=== PATIENT | male | born 1970 | race Caucasian/White ===

== ENCOUNTER 2017-05-22 11:49 | Inpatient (IN) ==
[2017-05-22] MEDS ORDERED: *HR* Metoprolol 5 MG/5 ML VIAL IVP PRN (13:34)
[2017-05-22] MEDS ORDERED: Ondansetron 4 MG/2 ML VIAL IVP PRN (13:34)
[2017-05-22] MEDS ORDERED: Naloxone 0.4 MG/ML INJ IVP PRN (13:34)
--- NOTE | 2017-05-22 14:39 | Event Note ---
Date of Encounter: 05/22/17 Time of Encounter: 14:38 Please see wound care note from 05/22/17 for complete H&P. Completed per Dr. De La Fuente.
[2017-05-22 14:47] LABS: Basophils # 0.1 K/mcL (0.0-0.2); Basophils % 0.6 %; Eosinophils # 0.3 K/mcL (0.0-0.6); Eosinophils % 1.7 %; Hematocrit 28.7 % (37.5-50.1); Hemoglobin 8.4 g/dL (12.9-16.9); Immature Granulocytes % 2.1 % (0-4); Lymphocytes # 2.1 K/mcL (0.6-4.6); Lymphocytes % 13.9 %; Mean Corpuscular HGB Conc 29.3 g/dL (31.6-35.5); Mean Corpuscular Hemoglobin 24.3 pg (28.0-33.3); Mean Corpuscular Volume 82.9 fL (83.0-100.0); Mean Platelet Volume 10.1 fL (9.4-12.4); Monocytes % 6.7 %; Neutrophils # 11.6 K/mcL (1.6-8.9); Platelet Count 407 K/mcL (140-400); Red Blood Count 3.46 M/mcL (4.19-5.50); Red Cell Distribution Width 19.1 % (11.5-14.5)
[2017-05-22] MEDS: 0.9 % Sodium Chloride 1,000 ML IVC SCH (14:48)
[2017-05-22 14:58] LABS: BUN/Creatinine Ratio 18 (6-26); Blood Urea Nitrogen 15 mg/dL (8-26); Calcium 8.5 mg/dL (8.6-10.8); Carbon Dioxide 27 mEq/L (19-29); Chloride 96 mEq/L (98-109); Glucose 97 mg/dL (70-99); Osmolality,Calculated 279 (280-300); Potassium 3.4 mEq/L (3.5-4.5); Sodium 134 mEq/L (136-145); eGFR For African Americans > 60 (> 60); eGFR For Non-African Americans > 60 (> 60)
[2017-05-22 14:59] LABS: INR 1.1; Prothrombin Time 12.2 Seconds (9.4-12.1)
[2017-05-22] MEDS ORDERED: tiZANidine 4 MG TABLET PO SCH (15:00)
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
[2017-05-22] MEDS ORDERED: Vancomycin 1,750 MG in D5% in Water 250 ML IVPB SCH ×2 (16:00→19:00)
[2017-05-22] MEDS ORDERED: Piperacillin/Tazobactam 3.375 GM in D5% in Water (Mini-Bag+) 100 ML IVPB SCH (16:00)
[2017-05-22] MEDS: tiZANidine 4 MG TABLET PO SCH ×2 (18:30→22:09)
[2017-05-22] MEDS: Baclofen 10 MG TABLET PO SCH (18:30)
[2017-05-22] MEDS: *HR* OxyCODONE/APAP 10/325 TABLET PO SCH (18:30)
[2017-05-22] MEDS ORDERED: Piperacillin/Tazobactam 3.375 GM in D5% in Water 50 ML IVPB SCH (19:00)
[2017-05-22] MEDS: Vancomycin 1,750 MG in D5% in Water 500 ML IVPB SCH (20:43)
[2017-05-22] MEDS: traMADol 50 MG TABLET PO SCH (22:09)
[2017-05-23] MEDS: Baclofen 10 MG TABLET PO SCH ×4 (00:16→17:20)
[2017-05-23] MEDS: traZODone 50 MG TABLET PO SCH (00:16)
[2017-05-23] MEDS: *HR* OxyCODONE/APAP 10/325 TABLET PO SCH ×4 (00:16→17:21)
[2017-05-23] MEDS: Piperacillin/Tazobactam 3.375 GM in D5% in Water 50 ML IVPB SCH ×3 (03:23→22:52)
[2017-05-23] MEDS: tiZANidine 4 MG TABLET PO SCH ×7 (03:23→21:29)
[2017-05-23 05:43] LABS: Basophils # 0.1 K/mcL (0.0-0.2); Eosinophils # 0.2 K/mcL (0.0-0.6); Eosinophils % 2.7 %; Hematocrit 24.8 % (37.5-50.1); Hemoglobin 7.3 g/dL (12.9-16.9); Immature Granulocytes % 1.6 % (0-4); Lymphocytes # 1.5 K/mcL (0.6-4.6); Lymphocytes % 16.6 %; Mean Corpuscular HGB Conc 29.4 g/dL (31.6-35.5); Mean Corpuscular Hemoglobin 24.6 pg (28.0-33.3); Mean Corpuscular Volume 83.5 fL (83.0-100.0); Mean Platelet Volume 8.8 fL (9.4-12.4); Monocytes # 0.7 K/mcL (0.0-1.3); Neutrophils # 6.3 K/mcL (1.6-8.9); Platelet Count 351 K/mcL (140-400); Red Blood Count 2.97 M/mcL (4.19-5.50); Red Cell Distribution Width 19.2 % (11.5-14.5); Segmented Neutrophils % 70.1 %
[2017-05-23 06:16] LABS: BUN/Creatinine Ratio 16 (6-26); Blood Urea Nitrogen 13 mg/dL (8-26); Calcium 7.8 mg/dL (8.6-10.8); Carbon Dioxide 28 mEq/L (19-29); Chloride 98 mEq/L (98-109); Glucose 106 mg/dL (70-99); Osmolality,Calculated 281 (280-300); Potassium 3.4 mEq/L (3.5-4.5); Sodium 135 mEq/L (136-145); eGFR For African Americans > 60 (> 60); eGFR For Non-African Americans > 60 (> 60)
[2017-05-23] MEDS: Levothyroxine 25 MCG TABLET PO SCH (06:46)
[2017-05-23] MEDS: Vancomycin 1,750 MG in D5% in Water 500 ML IVPB SCH ×2 (07:59→17:25)
[2017-05-23] MEDS: Nystatin SUSP 5 ML UD.LIQ PO SCH ×4 (08:01→21:29)
[2017-05-23] MEDS: traMADol 50 MG TABLET PO SCH ×3 (08:01→21:28)
[2017-05-23] MEDS ORDERED: Potassium Chloride Elixir 20 MEQ/15 ML UDC PO ONE (08:26)
--- NOTE | 2017-05-23 14:34 | General Surgery Progress Note ---
Date of Encounter: 05/24/17 Time of Encounter: 14:32 - Assessment and Plan (1) Decubitus ulcers Current Visit: Yes Status: Acute She with no multiple to keep his ulcers related to the back, buttocks, and bilateral heels as well as elbow. To be changed today and daily dressing changes have been ordered. Will evaluate wounds with daily dressing changes. At this time the patient has deferred on any type of colostomy procedure because he feels that the wounds become soiled with stool i.e. the wounds are chronic decubitus ulcers on related to presence of stool. Continue with dressing change orders at this time. Qualifiers: Pressure ulcer location: contiguous region involving back and buttock Pressure ulcer stage: stage 4 Laterality: unspecified laterality Qualified Code(s): L89.44 - Pressure ulcer of contiguous site of back, buttock and hip, stage 4 Subjective Patient reports: other (Patient known to Dr. De La Fuente's service. Seen in the Wound Care Clinic for multiple decubitis wounds.) Objective Vital Signs - Last 8 Hours Temp Pulse Resp BP Pulse Ox 05/23/17 12:30 97.3 F L 78 14 105/70 97 05/23/17 07:47 97.7 F 84 16 140/85 96 Intake and Output 05/22/17 05/23/17 05/23/17 23:59 07:59 15:59 Intake Total 620 / 620 50 / 50 Output Total 0 / 0 2300 / 2300 Balance 620 / 620 -2250 / -2250 Intake: IV Fluids 500 / 500 50 / 50 Zosyn 3.375 GM In Dextrose 5% ( 50 / 50 ADD-[place]) 50 ML @ 12.5 mls/ hr IVPB Q8H SUSANA Rx#:[id number] Vancocin 1,750 MG In Dextrose 5 500 / 500 % 500 ML @ 333.34 mls/hr IVPB Q12H SUSANA Rx#:[id number] Oral 120 / 120 0 / 0 Output: Catheter 0 / 0 2300 / 2300 Other: Meal Dinner Percent of Meal Consumed 100% Weight 109.27 kg Patient Weight 05/23/17 23:59 Weight 109.27 kg - General physical appearance well developed, well nourished - Musculoskeletal other (Dressings in place on multiple buttock, isheal, and bilateral heel wounds. ) - Labs 05/24/17 05:20 05/24/17 05:20 Diabetes panel 05/22/17 05/23/17 Range/Units 14:26 05:30 Sodium 134 L 135 L (136-145) mEq/L Potassium 3.4 L 3.4 L (3.5-4.5) mEq/L Chloride 96 L 98 (98-109) mEq/L Carbon Dioxide 27 28 (19-29) mEq/L BUN 15 13 (8-26) mg/dL Creatinine 0.85 0.81 (0.72-1.25) mg/dL Glucose 97 106 H (70-99) mg/dL Calcium 8.5 L 7.8 L (8.6-10.8) mg/dL Calcium panel 05/22/17 05/23/17 Range/Units 14:26 05:30 Calcium 8.5 L 7.8 L (8.6-10.8) mg/dL Pituitary panel 05/22/17 05/23/17 Range/Units 14:26 05:30 Sodium 134 L 135 L (136-145) mEq/L Potassium 3.4 L 3.4 L (3.5-4.5) mEq/L Chloride 96 L 98 (98-109) mEq/L Carbon Dioxide 27 28 (19-29) mEq/L BUN 15 13 (8-26) mg/dL Creatinine 0.85 0.81 (0.72-1.25) mg/dL Glucose 97 106 H (70-99) mg/dL Calcium 8.5 L 7.8 L (8.6-10.8) mg/dL Adrenal panel 05/22/17 05/23/17 Range/Units 14:26 05:30 Sodium 134 L 135 L (136-145) mEq/L Potassium 3.4 L 3.4 L (3.5-4.5) mEq/L Chloride 96 L 98 (98-109) mEq/L Carbon Dioxide 27 28 (19-29) mEq/L BUN 15 13 (8-26) mg/dL Creatinine 0.85 0.81 (0.72-1.25) mg/dL Glucose 97 106 H (70-99) mg/dL Calcium 8.5 L 7.8 L (8.6-10.8) mg/dL Consult Discharge Plan - Plan Referrals: Argenis Katz, ROX [Advanced Practice Nurse] - 06/05/17 8:40 am Keyona Joseph, TRANSITIONAL KINDERGARTEN TEACHER [Primary Care Provider] -
--- NOTE | 2017-05-23 15:24 | Internal Med Progress Note ---
Date of Encounter: 05/23/17 Time of Encounter: 09:00 - Assessment and plan (1) Osteomyelitis Current Visit: No Status: Acute Assessment and plan: MRI shows osteomyelitis. - Continue Vanco and Zosyn. - IR consult called by Dr De La Fuente, for bone biopsy. Follow up culture result. - ID consult for abx management. Patient is at high risk because he is on vancomycin, need close monitoring Qualifiers: Osteomyelitis type: subacute Osteomyelitis location: multiple sites Qualified Code(s): M86.29 - Subacute osteomyelitis, multiple sites (2) Septic arthritis Current Visit: Yes Status: Suspected Assessment and plan: Suspected right hip septic arthritis by MRI. On broad spectrum antibiotics now. - Consult orthopedic. On-call orthopedic paged, waiting for call back. - ID is also on case. Qualifiers: Septic arthritis location: hip Septic arthritis organism: due to unspecified organism Laterality: right Qualified Code(s): M00.9 - Pyogenic arthritis, unspecified (3) Pressure ulcer of coccygeal region, stage 4 Current Visit: No Status: Chronic Assessment and plan: Continue wound care. Surgical team on case for wound care. (4) Hypothyroid Current Visit: No Status: Chronic Assessment and plan: Continue home medication Qualifiers: Hypothyroidism type: acquired Qualified Code(s): E03.9 - Hypothyroidism, unspecified (5) DVT prophylaxis Current Visit: Yes Status: Acute Assessment and plan: Heparin subcutaneously (6) Anemia Current Visit: Yes Status: Acute Assessment and plan: Patient has a chronic anemia. We will check anemia workup. Qualifiers: Anemia type: unspecified type Qualified Code(s): D64.9 - Anemia, unspecified - Time Spent With Patient Greater than 35 minutes - Subjective Interval history: Patient is a 46-year-old male with quadriplegia since 1996, chronic decubitus ulcer, anemia, hypothyroidism, send to hospital by wound care Dr De La Fuente for suspected osteomyelitis. I have seen and examined the patient today. Patient denies fever. Denies nausea or vomiting. WBC get down after antibiotic treatment. MRI pelvis suggested osteomyelitis and suspected septic arthritis of b/l hips. We will continue broad spectrum antibiotic. Consult ID and orthopedics. - Constitutional Vitals: Temp Pulse Resp BP Pulse Ox 97.3 F L 68 16 125/84 95 05/23/17 14:43 05/23/17 14:43 05/23/17 14:43 05/23/17 14:43 05/23/17 14:43 General appearance: Present: A&O X 3, no acute distress, answers questions appropriately - Head Head exam: Present: atraumatic, normocephalic - Eye Eye exam: Present: PERRL, conjuntiva pink, sclera anicteric Pupils: Present: PERRL - Neck Neck exam general surgery: Present: supple, trachea midline. Absent: lymphadenopathy - Respiratory Respiratory exam: Present: CTAB. Absent: accessory muscle use, rales, rhonchi, wheezes - Cardiovascular Cardiovascular exam: Present: RRR, +S1, +S2. Absent: diastolic murmur, gallop, rubs, systolic murmur - GI/Abdominal GI/Abdominal exam: Present: normal bowel sounds, soft, no peritoneal signs. Absent: distended, tenderness - Extremities Exam Extremities exam: Present: warm, radial pulses palpable and symmetrical. Absent : calf tenderness, cyanotic, pedal edema Additional comments: Quadriplegia under C7 level - Neurological Exam Neurological exam: Present: CN II-XII intact, motor sensory deficit, oriented X3. Absent: pronater drift, facial droop, speech deficit Additional comments: Quadriplegia under C7 level - Skin Skin exam: Present: dry, intact Additional comments: Stage IV decubitus ulcer Internal Medicine: Result - Labs CBC & Chem 7: 05/23/17 05:30 05/23/17 05:30 Labs: Short CBC 05/23/17 Range/Units 05:30 WBC 9.0 (4.3-11.1) K/mcL Hgb 7.3 L (12.9-16.9) g/dL Hct 24.8 L (37.5-50.1) % Plt Count 351 (140-400) K/mcL Neutrophils # 6.3 (1.6-8.9) K/mcL BMP 05/23/17 05:30 Sodium 135 L Potassium 3.4 L Chloride 98 Carbon Dioxide 28 BUN 13 Creatinine 0.81 Glucose 106 H Calcium 7.8 L - ABG Interpretation ABG results: PT/INR, D-dimer PT 12.2 Seconds (9.4-12.1) H 05/22/17 14:26 - Impressions Impressions Pelvis MRI 05/22/17 13:37 IMPRESSION: 1. Large deep bilateral ischial decubitus ulcers contacting the posterior aspects of the bilateral acetabula. Large deep sacral decubitus ulceration contacting the inferior endplate of the S2 sacral segment. 2. Findings compatible with osteomyelitis of the right superior, anterior, and posterior acetabulum as well as the right femoral head and neck with suspected right hip septic arthritis. 3. Findings compatible with osteomyelitis of the left posterior acetabulum. Small nonspecific left hip joint effusion. If there is concern for septic arthritis please consider arthrocentesis. 4. Absence of the bilateral ischial bones. 5. Absence of the lower sacrum with mild bone marrow edema in the inferior endplate of the S2 sacral segment that may represent early osteomyelitis versus noninfectious reactive osteitis. 6. No drainable fluid collection. D/ / Gene Bustamante MD / Gene Bustamante MD Interpreting Provider: Gene Bustamante MD Consult Discharge Plan - Plan Referrals: Argenis Katz CNP [Advanced Practice Nurse] - 06/05/17 8:40 am Keyona Joseph CNP [Primary Care Provider] -
[2017-05-23] MEDS: *HR* Heparin 5,000 UNIT/ML VIAL SQ SCH (17:20)
[2017-05-24] MEDS: *HR* OxyCODONE/APAP 10/325 TABLET PO SCH ×5 (00:02→23:52)
[2017-05-24] MEDS: traZODone 50 MG TABLET PO SCH ×2 (00:02→23:52)
[2017-05-24] MEDS: Baclofen 10 MG TABLET PO SCH ×5 (00:02→23:52)
[2017-05-24] MEDS: Piperacillin/Tazobactam 3.375 GM in D5% in Water 50 ML IVPB SCH ×3 (03:30→20:54)
[2017-05-24] MEDS: tiZANidine 4 MG TABLET PO SCH ×6 (03:30→21:59)
[2017-05-24] MEDS: *HR* Heparin 5,000 UNIT/ML VIAL SQ SCH ×2 (05:15→17:37)
[2017-05-24] MEDS: Levothyroxine 25 MCG TABLET PO SCH (05:20)
[2017-05-24] MEDS: 0.9 % Sodium Chloride 1,000 ML IVC SCH ×2 (05:20→23:52)
[2017-05-24 05:37] LABS: Basophils # 0.1 K/mcL (0.0-0.2); Basophils % 1.1 %; Eosinophils # 0.4 K/mcL (0.0-0.6); Eosinophils % 3.4 %; Hematocrit 27.5 % (37.5-50.1); Immature Granulocytes % 1.1 % (0-4); Lymphocytes # 1.5 K/mcL (0.6-4.6); Lymphocytes % 13.9 %; Mean Corpuscular HGB Conc 29.1 g/dL (31.6-35.5); Mean Corpuscular Hemoglobin 24.6 pg (28.0-33.3); Mean Corpuscular Volume 84.6 fL (83.0-100.0); Mean Platelet Volume 9.5 fL (9.4-12.4); Monocytes # 0.6 K/mcL (0.0-1.3); Monocytes % 5.8 %; Neutrophils # 7.8 K/mcL (1.6-8.9); Platelet Count 405 K/mcL (140-400); Red Blood Count 3.25 M/mcL (4.19-5.50); Red Cell Distribution Width 19.3 % (11.5-14.5); Segmented Neutrophils % 74.7 %
[2017-05-24 05:49] LABS: BUN/Creatinine Ratio 13 (6-26); Blood Urea Nitrogen 12 mg/dL (8-26); Calcium 7.9 mg/dL (8.6-10.8); Carbon Dioxide 24 mEq/L (19-29); Chloride 101 mEq/L (98-109); Glucose 185 mg/dL (70-99); Osmolality,Calculated 285 (280-300); Potassium 3.6 mEq/L (3.5-4.5); Sodium 135 mEq/L (136-145); eGFR For African Americans > 60 (> 60); eGFR For Non-African Americans > 60 (> 60)
[2017-05-24 06:08] LABS: % Iron Saturation 7 % (20-55); Iron 17 mcg/dL (65-175); Transferrin 167 mg/dL (174-364)
[2017-05-24 06:11] LABS: C-Reactive Protein 199 mg/L (Less than 5)
[2017-05-24 06:22] LABS: Ferritin 90 ng/ml (22-275)
[2017-05-24 06:26] LABS: Folate 5.6 ng/mL (7.0-31.4)
--- NOTE | 2017-05-24 06:31 | Orthopedic Consult Note ---
Date of Encounter: 05/24/17 Time of Encounter: 06:29 History of Present Illness HPI: Mr. Ram is a 46 year old male seen this morning concerned for right hip cellulitis. Patient with multiple ulcers secondary to being bedbound. MRI was reviewed shows activity in both the right hip and acetabulum. Based on the extent of his involvement patient is not a good surgical candidate would require extensive bone resection involving the hip and acetabular socket. Recommend continued IV antibiotics if surgical management is required patient would need to be seen by an orthopedic oncologist for this extensive procedure. Past Med Surg Social Fam HX - Past Medical History Medical history: thyroid disease, other Psychiatric history: no psych history - Past Surgical History Surgical History: orthopedic, other - Social History Smoking Status: Never smoker Smokeless Tobacco Status: No (patient reports no longer chewing) Alcohol use: none Drug use: none - Family History Mother Living Status: Still Living Hx Family Endocrine Disorder: Yes (thyroid ) Father Living Status: Still Living Hx Family Neurologic Disorders: Yes (CVA) Medications and Allergies Baclofen [Lioresal] 20 mg PO QID 03/01/15 [History] Ibuprofen [Motrin] 400 mg PO Q6HR PRN 03/01/15 [History] Levothyroxine [Synthroid] 25 mcg PO 0630 03/01/15 [History] OxyCODONE/APAP 10/325 [Percocet 10/325] 1 each PO Q6HR 03/01/15 [History] Oxybutynin [Ditropan] 5 mg PO TID 03/01/15 [History] traMADol [Ultram] 100 mg PO TID 03/01/15 [History] Tizanidine HCl [Zanaflex] 4 mg PO TID 11/30/15 [History] Furosemide [Lasix] 40 mg PO DAILY 05/16/16 [History] Clindamycin [Cleocin] 300 mg PO TID 05/22/17 [History] Collagenase Oint [Santyl] 1 appl TP DAILY 05/22/17 [History] Nystatin [Nystatin Suspension] 100,000 units PO QID 05/22/17 [History] Oxybutynin [Ditropan] 5 mg PO TID 05/22/17 [History] Tizanidine HCl [Zanaflex] 2 mg PO TID 05/22/17 [History] Trazodone HCl 100 mg PO HS 05/22/17 [History] 3 Allergy/AdvReac Type Severity Reaction Status Date / Time lorazepam [From Ativan] Allergy Nightmare Verified 03/01/15 11:54 All Systems Reviewed: A 10-system review of systems was performed and is negative for pertinent findings except as documented above in the HPI. Physical Exam - Constitutional Vitals: Temp Pulse Resp BP Pulse Ox 97.5 F L 123 17 132/86 97 05/24/17 04:11 05/24/17 04:11 05/24/17 04:11 05/24/17 04:11 05/24/17 04:11 Results - Labs Result Diagrams: 05/24/17 05:20 05/24/17 05:20 Labs: Abnormal lab results RBC 3.25 M/mcL (4.19-5.50) L 05/24/17 05:20 Hgb 8.0 g/dL (12.9-16.9) L 05/24/17 05:20 Hct 27.5 % (37.5-50.1) L 05/24/17 05:20 MCH 24.6 pg (28.0-33.3) L 05/24/17 05:20 MCHC 29.1 g/dL (31.6-35.5) L 05/24/17 05:20 RDW 19.3 % (11.5-14.5) H 05/24/17 05:20 Plt Count 405 K/mcL (140-400) H 05/24/17 05:20 ESR >= 130 mm/hr (0-10) H 05/24/17 05:20 PT 12.2 Seconds (9.4-12.1) H 05/22/17 14:26 Sodium 135 mEq/L (136-145) L 05/24/17 05:20 Glucose 185 mg/dL (70-99) H 05/24/17 05:20 Calcium 7.9 mg/dL (8.6-10.8) L 05/24/17 05:20 Iron 17 mcg/dL (65-175) L 05/24/17 05:20 % Saturation 7 % (20-55) L 05/24/17 05:20 Transferrin 167 mg/dL (174-364) L 05/24/17 05:20 C-Reactive Protein 199 mg/L (Less than 5) H 05/24/17 05:20 Folate 5.6 ng/mL (7.0-31.4) L 05/24/17 05:20 H & H 05/24/17 Range/Units 05:20 Hgb 8.0 L (12.9-16.9) g/dL Hct 27.5 L (37.5-50.1) % All other labs normal. Consult Discharge Plan - Plan Referrals: Argenis Katz CNP [Advanced Practice Nurse] - 06/05/17 8:40 am Keyona Joseph CNP [Primary Care Provider] -
[2017-05-24] MEDS: Vancomycin 1,750 MG in D5% in Water 500 ML IVPB SCH (08:23)
[2017-05-24] MEDS: Nystatin SUSP 5 ML UD.LIQ PO SCH ×4 (08:26→20:55)
[2017-05-24] MEDS: traMADol 50 MG TABLET PO SCH ×3 (08:26→21:59)
--- NOTE | 2017-05-24 12:00 | Internal Med Progress Note ---
Date of Encounter: 05/24/17 Time of Encounter: 09:00 - Assessment and plan (1) Osteomyelitis Current Visit: No Status: Acute Assessment and plan: MRI shows osteomyelitis. - Continue Vanco and Zosyn. - IR consult called by Dr De La Fuente, for bone biopsy. Follow up culture result. - ID consult for abx management. Patient is at high risk because he is on vancomycin, need close monitoring Qualifiers: Osteomyelitis type: subacute Osteomyelitis location: multiple sites Qualified Code(s): M86.29 - Subacute osteomyelitis, multiple sites (2) Septic arthritis Current Visit: Yes Status: Suspected Assessment and plan: Suspected right hip septic arthritis by MRI. On broad spectrum antibiotics now. - Orthopedic consult saw pt, no procedure now. - ID is also on case. Qualifiers: Septic arthritis location: hip Septic arthritis organism: due to unspecified organism Laterality: right Qualified Code(s): M00.9 - Pyogenic arthritis, unspecified (3) Pressure ulcer of coccygeal region, stage 4 Current Visit: No Status: Chronic Assessment and plan: Continue wound care. Surgical team on case for wound care. (4) Hypothyroid Current Visit: No Status: Chronic Assessment and plan: Continue home medication Qualifiers: Hypothyroidism type: acquired Qualified Code(s): E03.9 - Hypothyroidism, unspecified (5) DVT prophylaxis Current Visit: Yes Status: Acute Assessment and plan: Heparin subcutaneously (6) Anemia Current Visit: Yes Status: Acute Assessment and plan: Patient has a chronic anemia. Anemia workup shows Iron deficiency and folic acid deficiency, supplement added. Qualifiers: Anemia type: iron deficiency Iron deficiency anemia type: chronic blood loss Qualified Code(s): D50.0 - Iron deficiency anemia secondary to blood loss (chronic) - Subjective Interval history: Patient is a 46-year-old male with quadriplegia since 1996, chronic decubitus ulcer, anemia, hypothyroidism, send to hospital by wound care Dr De La Fuente for suspected osteomyelitis. I have seen and examined the patient today. Patient denies fever. Denies nausea or vomiting. WBC get down after antibiotic treatment. Mild tachycardia. Will increase IVF rate. We will continue broad spectrum antibiotic. Orthopedics consult appreciated. - Constitutional Vitals: Temp Pulse Resp BP Pulse Ox 97.4 F L 102 16 99/73 94 05/24/17 08:23 05/24/17 08:23 05/24/17 08:23 05/24/17 08:23 05/24/17 08:23 General appearance: Present: A&O X 3, no acute distress, answers questions appropriately - Head Head exam: Present: atraumatic, normocephalic - Eye Eye exam: Present: PERRL, conjuntiva pink, sclera anicteric Pupils: Present: PERRL - Neck Neck exam general surgery: Present: supple, trachea midline. Absent: lymphadenopathy - Respiratory Respiratory exam: Present: CTAB. Absent: accessory muscle use, rales, rhonchi, wheezes - Cardiovascular Cardiovascular exam: Present: RRR, +S1, +S2. Absent: diastolic murmur, gallop, rubs, systolic murmur - GI/Abdominal GI/Abdominal exam: Present: normal bowel sounds, soft, no peritoneal signs. Absent: distended, tenderness - Extremities Exam Extremities exam: Present: warm, radial pulses palpable and symmetrical. Absent : calf tenderness, cyanotic, pedal edema Additional comments: Quadriplegia from C7 - Neurological Exam Neurological exam: Present: CN II-XII intact, oriented X3, no focal deficits. Absent: pronater drift, facial droop, speech deficit Additional comments: Quadriplegia. - Skin Skin exam: Present: dry, intact Additional comments: Debuticus ulcer stage IV Internal Medicine: Result - Labs CBC & Chem 7: 05/24/17 05:20 05/24/17 05:20 Labs: Short CBC 05/24/17 Range/Units 05:20 WBC 10.4 (4.3-11.1) K/mcL Hgb 8.0 L (12.9-16.9) g/dL Hct 27.5 L (37.5-50.1) % Plt Count 405 H (140-400) K/mcL Neutrophils # 7.8 (1.6-8.9) K/mcL BMP 05/24/17 05:20 Sodium 135 L Potassium 3.6 Chloride 101 Carbon Dioxide 24 BUN 12 Creatinine 0.89 Glucose 185 H Calcium 7.9 L - ABG Interpretation ABG results: PT/INR, D-dimer PT 12.2 Seconds (9.4-12.1) H 05/22/17 14:26 Consult Discharge Plan - Plan Referrals: Argenis Katz, REINSTATEMENT CLERK [Advanced Practice Nurse] - 06/05/17 8:40 am Keyona Joseph CNP [Primary Care Provider] -
--- NOTE | 2017-05-24 13:38 | General Surgery Progress Note ---
Date of Encounter: 05/24/17 Time of Encounter: 13:35 - Assessment and Plan (1) Decubitus ulcers Current Visit: Yes Status: Acute The hip/back/buttock wounds have been evaluated and there actually appears to be a fair amount of healthy-appearing granulation tissue. Deftly recommend continued daily dressing changes at this time. Dr. De La Fuente to return tomorrow; will inform her regarding the dressing changes results. Qualifiers: Pressure ulcer location: contiguous region involving back and buttock Pressure ulcer stage: stage 4 Laterality: unspecified laterality Qualified Code(s): L89.44 - Pressure ulcer of contiguous site of back, buttock and hip, stage 4 Subjective Patient reports: no new complaints (Denies any pain or discomfort. For dressing change today.) Objective Vital Signs - Last 8 Hours Temp Pulse Resp BP Pulse Ox 05/24/17 12:33 97.6 F 86 18 137/92 99 05/24/17 08:23 97.4 F L 102 16 99/73 94 Intake and Output 05/23/17 05/24/17 05/24/17 23:59 07:59 15:59 Intake Total 50 / 50 1000 / 1000 Output Total 1650 / 1650 1550 / 1550 800 / 800 Balance -1600 / -1600 -550 / -550 -800 / -800 Intake: IV Fluids 50 / 50 1000 / 1000 0.9 % Sodium Chloride 1,000 ML 1000 / 1000 @ 40 mls/hr IVC .Q24H [facility] Rx#: [id number] Zosyn 3.375 GM In Dextrose 5% ( 50 / 50 0 / 0 ADD-[place]) 50 ML @ 12.5 mls/ hr IVPB Q8H [facility] Rx#:[id number] Output: Urine 1650 / 1650 1550 / 1550 800 / 800 Other: Weight 109.2 kg Patient Weight 05/24/17 23:59 Weight 109.2 kg - General physical appearance well nourished, no distress - Musculoskeletal other (posterior buttock and hip/back wound visualized. The patient has about 90-95% granulation tissue with two or three areas of yellowish fibrinous drainage/material. No erythema.) - Labs 05/24/17 05:20 05/24/17 05:20 Diabetes panel 05/24/17 Range/Units 05:20 Sodium 135 L (136-145) mEq/L Potassium 3.6 (3.5-4.5) mEq/L Chloride 101 (98-109) mEq/L Carbon Dioxide 24 (19-29) mEq/L BUN 12 (8-26) mg/dL Creatinine 0.89 (0.72-1.25) mg/dL Glucose 185 H (70-99) mg/dL Calcium 7.9 L (8.6-10.8) mg/dL Calcium panel 05/24/17 Range/Units 05:20 Calcium 7.9 L (8.6-10.8) mg/dL Pituitary panel 05/24/17 Range/Units 05:20 Sodium 135 L (136-145) mEq/L Potassium 3.6 (3.5-4.5) mEq/L Chloride 101 (98-109) mEq/L Carbon Dioxide 24 (19-29) mEq/L BUN 12 (8-26) mg/dL Creatinine 0.89 (0.72-1.25) mg/dL Glucose 185 H (70-99) mg/dL Calcium 7.9 L (8.6-10.8) mg/dL Adrenal panel 05/24/17 Range/Units 05:20 Sodium 135 L (136-145) mEq/L Potassium 3.6 (3.5-4.5) mEq/L Chloride 101 (98-109) mEq/L Carbon Dioxide 24 (19-29) mEq/L BUN 12 (8-26) mg/dL Creatinine 0.89 (0.72-1.25) mg/dL Glucose 185 H (70-99) mg/dL Calcium 7.9 L (8.6-10.8) mg/dL Consult Discharge Plan - Plan Referrals: Argenis Katz CNP [Advanced Practice Nurse] - 06/05/17 8:40 am Keyona Joseph CNP [Primary Care Provider] -
[2017-05-25] MEDS: tiZANidine 4 MG TABLET PO SCH ×6 (03:10→21:53)
[2017-05-25] MEDS: Piperacillin/Tazobactam 3.375 GM in D5% in Water 50 ML IVPB SCH ×3 (03:12→21:37)
[2017-05-25 04:01] LABS: Basophils # 0.1 K/mcL (0.0-0.2); Basophils % 0.9 %; Eosinophils # 0.3 K/mcL (0.0-0.6); Eosinophils % 2.8 %; Immature Granulocytes % 0.5 % (0-4); Immature Platelets 1.9 % (1.1-6.1); Lymphocytes # 1.5 K/mcL (0.6-4.6); Lymphocytes % 14.7 %; Mean Corpuscular HGB Conc 29.2 g/dL (31.6-35.5); Mean Corpuscular Hemoglobin 24.8 pg (28.0-33.3); Mean Corpuscular Volume 85.1 fL (83.0-100.0); Mean Platelet Volume 9.8 fL (9.4-12.4); Monocytes # 0.6 K/mcL (0.0-1.3); Monocytes % 5.3 %; Neutrophils # 7.8 K/mcL (1.6-8.9); Platelet Count 420 K/mcL (140-400); Red Blood Count 2.82 M/mcL (4.19-5.50); Red Cell Distribution Width 19.4 % (11.5-14.5); Segmented Neutrophils % 75.8 %
[2017-05-25 04:20] LABS: BUN/Creatinine Ratio 14 (6-26); Blood Urea Nitrogen 11 mg/dL (8-26); Calcium 7.3 mg/dL (8.6-10.8); Carbon Dioxide 26 mEq/L (19-29); Chloride 100 mEq/L (98-109); Glucose 117 mg/dL (70-99); Osmolality,Calculated 274 (280-300); Potassium 3.6 mEq/L (3.5-4.5); Sodium 132 mEq/L (136-145); eGFR For African Americans > 60 (> 60); eGFR For Non-African Americans > 60 (> 60)
[2017-05-25] MEDS: Levothyroxine 25 MCG TABLET PO SCH (05:44)
[2017-05-25] MEDS: *HR* OxyCODONE/APAP 10/325 TABLET PO SCH ×3 (05:45→17:42)
[2017-05-25] MEDS: *HR* Heparin 5,000 UNIT/ML VIAL SQ SCH ×2 (05:45→17:41)
[2017-05-25] MEDS: 0.9 % Sodium Chloride 1,000 ML IVC SCH ×3 (07:56→18:00)
[2017-05-25] MEDS: Folic Acid 1 MG TABLET PO SCH (08:03)
[2017-05-25] MEDS: Nystatin SUSP 5 ML UD.LIQ PO SCH ×4 (08:04→21:37)
[2017-05-25] MEDS: Baclofen 10 MG TABLET PO SCH ×3 (08:04→17:40)
[2017-05-25] MEDS: traMADol 50 MG TABLET PO SCH ×3 (08:04→21:38)
--- NOTE | 2017-05-25 08:50 | Internal Med Progress Note ---
<Foster Sousa - Last Filed: 05/25/17 14:18> Date of Encounter: 05/25/17 Time of Encounter: 07:55 - Assessment and plan (1) Osteomyelitis Current Visit: No Status: Acute Assessment and plan: Patient has extensive decubitii and MRI shows osteomyelitis and possible septic joint Bone biopsy obtained by IR today Patient is at high risk because he is on vancomycin, need close monitoring Continue Vanco and Zosyn ID has been consulted and appreciate recommendations Qualifiers: Osteomyelitis type: subacute Osteomyelitis location: multiple sites Qualified Code(s): M86.29 - Subacute osteomyelitis, multiple sites (2) Septic arthritis Current Visit: Yes Status: Suspected Assessment and plan: Suspected right hip septic arthritis by MRI. On broad spectrum antibiotics now Patient had Orthopedic Surgery evaluation yesterday and deemed not a good surgical candidate Will speak with ortho about obtaining a arthrocentesis of his right hip for culture and gram stain ID is consulted for assistance with managing infections recommend joint aspiration to assess potential pathogen Qualifiers: Septic arthritis location: hip Septic arthritis organism: due to unspecified organism Laterality: right Qualified Code(s): M00.9 - Pyogenic arthritis, unspecified (3) Anemia Current Visit: Yes Status: Chronic Assessment and plan: Patient has a chronic anemia Anemia workup shows Iron deficiency and folic acid deficiency Current hemoglobin 7.0 Iron supplementation and folic acid supplementation Transfuse if hemoglobin falls below 7.0 Qualifiers: Anemia type: iron deficiency Iron deficiency anemia type: chronic blood loss Qualified Code(s): D50.0 - Iron deficiency anemia secondary to blood loss (chronic) (4) Pressure ulcer of coccygeal region, stage 4 Current Visit: No Status: Chronic Assessment and plan: Continue daily wound care per surgery recommendations (5) Hypothyroid Current Visit: No Status: Chronic Assessment and plan: Continue home levothyroxine at 25 g Qualifiers: Hypothyroidism type: acquired Qualified Code(s): E03.9 - Hypothyroidism, unspecified (6) DVT prophylaxis Current Visit: Yes Status: Acute Assessment and plan: 5000 units heparin subcutaneous twice a day - Subjective Interval history: Patient asleep, but easily arousable when entering the room. Patient has no complaints at this time other than consistent burning sensation in his sacrum, but he states is chronic. Denies fever/chills, denies weakness, denies chest pain, denies shortness of breath. He is planned for bone biopsy later today. - Constitutional Vitals: Temp Pulse Resp BP Pulse Ox 97.5 F L 93 18 114/81 98 05/25/17 07:45 05/25/17 07:45 05/25/17 07:45 05/25/17 07:45 05/25/17 07:45 General appearance: Present: A&O X 3, no acute distress, answers questions appropriately Exam: General: Cooperative, pleasant, no acute distress, alert and oriented 3, answers questions appropriately HEENT: Normocephalic, atraumatic, neck supple, trachea midline, Conjunctiva pink , sclera anicteric Respiratory: No accessory muscle usage, clear to auscultation bilaterally, no wheezes/rhonchi/rales appreciated Cardiovascular: Regular rate and rhythm, S1 and S2 present, no murmurs/rubs/ gallops/clicks appreciated Extremities: No calf tenderness, no pedal edema appreciated, warm, lower extremity pulses palpable and symmetrical Neurological: Alert and oriented 3, no facial droop, no focal deficits Internal Medicine: Result - Labs CBC & Chem 7: 05/25/17 03:21 05/25/17 03:21 Labs: Short CBC 05/25/17 Range/Units 03:21 WBC 10.3 (4.3-11.1) K/mcL Hgb 7.0 L (12.9-16.9) g/dL Hct 24.0 L (37.5-50.1) % Plt Count 420 H (140-400) K/mcL Neutrophils # 7.8 (1.6-8.9) K/mcL BMP 05/25/17 03:21 Sodium 132 L Potassium 3.6 Chloride 100 Carbon Dioxide 26 BUN 11 Creatinine 0.78 Glucose 117 H Calcium 7.3 L - ABG Interpretation ABG results: PT/INR, D-dimer PT 12.2 Seconds (9.4-12.1) H 05/22/17 14:26 Consult Discharge Plan - Plan Referrals: Argenis Katz CNP [Advanced Practice Nurse] - 06/05/17 8:40 am Keyona Joseph CNP [Primary Care Provider] - <Gurpreet Stanton - Last Filed: 05/25/17 18:04> Date of Encounter: 05/25/17 - Assessment and plan (1) Osteomyelitis Current Visit: No Status: Acute Qualifiers: Osteomyelitis type: subacute Osteomyelitis location: multiple sites Qualified Code(s): M86.29 - Subacute osteomyelitis, multiple sites (2) Septic arthritis Current Visit: Yes Status: Suspected Qualifiers: Septic arthritis location: hip Septic arthritis organism: due to unspecified organism Laterality: right Qualified Code(s): M00.9 - Pyogenic arthritis, unspecified (3) Pressure ulcer of coccygeal region, stage 4 Current Visit: No Status: Chronic (4) Hypothyroid Current Visit: No Status: Chronic Qualifiers: Hypothyroidism type: acquired Qualified Code(s): E03.9 - Hypothyroidism, unspecified (5) DVT prophylaxis Current Visit: Yes Status: Acute (6) Anemia Current Visit: Yes Status: Chronic Qualifiers: Anemia type: iron deficiency Iron deficiency anemia type: chronic blood loss Qualified Code(s): D50.0 - Iron deficiency anemia secondary to blood loss (chronic) - Constitutional Vitals: Temp Pulse Resp BP Pulse Ox 98.4 F 77 16 85/56 95 05/25/17 16:00 05/25/17 16:00 05/25/17 16:00 05/25/17 16:00 05/25/17 16:00 Internal Medicine: Result - Labs CBC & Chem 7: 05/25/17 03:21 05/25/17 03:21 Labs: Short CBC 05/25/17 Range/Units 03:21 WBC 10.3 (4.3-11.1) K/mcL Hgb 7.0 L (12.9-16.9) g/dL Hct 24.0 L (37.5-50.1) % Plt Count 420 H (140-400) K/mcL Neutrophils # 7.8 (1.6-8.9) K/mcL BMP 05/25/17 03:21 Sodium 132 L Potassium 3.6 Chloride 100 Carbon Dioxide 26 BUN 11 Creatinine 0.78 Glucose 117 H Calcium 7.3 L - ABG Interpretation ABG results: PT/INR, D-dimer PT 12.2 Seconds (9.4-12.1) H 05/22/17 14:26 - Impressions Impressions Bone Biopsy CT 05/25/17 00:00 IMPRESSION: Successful CT guided ischial biopsy for the purpose of osteomyelitis culture. D/ / 05/25/2017 14:00:54 Maddison Stern MD / nadine Interpreting Provider: Maddison Stern MD - Attending Attestation I have seen and examined pt independently. I have discussed with resident physician Dr Sousa regarding the management plan. Agree with the documentation. Pt has no fever. WBC remains WNL. Had bone biopsy today. Cont vanco and zosyn. ID consult appreciated. Pt is at high risk considering severe infection, on vanco and needs close monitoring.
--- NOTE | 2017-05-25 11:01 | Event Note ---
Date of Encounter: 05/25/17 Time of Encounter: 11:00 Dressing changes going as expected. Care is transferred to the hospitalist service as no urgent general surgery intervention is indicated. Please have patient follow-up in wound care after d/c. Please consult surgery if questions or need arises in the interim.
--- NOTE | 2017-05-25 12:18 | IR Procedure Note ---
Date of procedure: 05/25/17 Consent Obtained: Verbal consent Timeout: Correct patient and procedure verified, Correct site verified, Time out performed, Skin prep completed Indications: infection Procedure Performed: exchange bilateral nephroureteric catheter Site/Technique: bilateral Results/Findings: over stiff glidewire, adequate result Estimated blood loss (cc): 0 Complications: None; Tolerated procedure well Post Procedure Treatment Plan: dc to floor
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
--- NOTE | 2017-05-25 13:58 | IR Procedure Note ---
Date of procedure: 05/25/17 Consent Obtained: Written consent Timeout: Correct patient and procedure verified, Correct site verified, Time out performed, Skin prep completed Indications: Osteomyelitis Procedure Performed: bone biopsy Site/Technique: JamShidi device, 14G Results/Findings: left ischial biopsy sent for culture Estimated blood loss (cc): 0 Complications: None; Tolerated procedure well Post Procedure Treatment Plan: dc to floor
[2017-05-25 17:51] LABS: Bilirubin,Urine Negative (Negative); Blood,Urine Moderate (Negative); Clarity,Urine Clear (Clear); Color,Urine Yellow (Yellow); Glucose,Urine (UA) 100 mg/dL (Normal); Ketones,Urine Negative (Negative); Leukocyte Esterase,Urine Trace (Negative); Nitrite,Urine Negative (Negative); Protein,Urine Trace mg/dL (Neg-Trace); Specific Gravity,Urine 1.023 (1.010-1.025); Urobilinogen,Urine Normal (Normal)
[2017-05-25 17:54] LABS: Bacteria,Urine None Seen per hpf (None-Few); Hyaline Casts,Urine None Seen per lpf (None-Few); RBC,Urine 15-30 per hpf (0-3); Squamous Epithelial Cell,Urine Many per lpf (None-Few)
[2017-05-25] MEDS: Vancomycin 1,250 MG in D5% in Water 250 ML IVPB SCH (18:23)
[2017-05-26] MEDS: *HR* OxyCODONE/APAP 10/325 TABLET PO SCH ×4 (00:14→17:40)
[2017-05-26] MEDS: Baclofen 10 MG TABLET PO SCH ×4 (00:14→17:40)
[2017-05-26] MEDS: traZODone 50 MG TABLET PO SCH (00:15)
[2017-05-26] MEDS: tiZANidine 4 MG TABLET PO SCH ×6 (01:46→22:13)
[2017-05-26] MEDS: 0.9 % Sodium Chloride 1,000 ML IVC SCH ×2 (01:47→12:30)
[2017-05-26] MEDS: Piperacillin/Tazobactam 3.375 GM in D5% in Water 50 ML IVPB SCH ×3 (03:26→22:11)
[2017-05-26 05:42] LABS: Immature Granulocytes % 0.6 % (0-4); Platelet Count 321 K/mcL (140-400); Red Cell Distribution Width 19.7 % (11.5-14.5)
[2017-05-26 05:44] LABS: Basophils # 0.1 K/mcL (0.0-0.2); Basophils % 1.3 %; Eosinophils # 0.3 K/mcL (0.0-0.6); Eosinophils % 4.3 %; Hematocrit 23.6 % (37.5-50.1); Hemoglobin 6.7 g/dL (12.9-16.9); Lymphocytes # 1.2 K/mcL (0.6-4.6); Lymphocytes % 16.6 %; Mean Corpuscular HGB Conc 28.4 g/dL (31.6-35.5); Mean Corpuscular Hemoglobin 24.5 pg (28.0-33.3); Mean Corpuscular Volume 86.4 fL (83.0-100.0); Monocytes # 0.5 K/mcL (0.0-1.3); Monocytes % 6.7 %; Neutrophils # 4.9 K/mcL (1.6-8.9); Red Blood Count 2.73 M/mcL (4.19-5.50); Segmented Neutrophils % 70.5 %
[2017-05-26 05:49] LABS: BUN/Creatinine Ratio 14 (6-26); Blood Urea Nitrogen 11 mg/dL (8-26); Calcium 7.6 mg/dL (8.6-10.8); Carbon Dioxide 22 mEq/L (19-29); Chloride 107 mEq/L (98-109); Glucose 126 mg/dL (70-99); Osmolality,Calculated 283 (280-300); Potassium 3.7 mEq/L (3.5-4.5); Sodium 136 mEq/L (136-145); eGFR For African Americans > 60 (> 60); eGFR For Non-African Americans > 60 (> 60)
[2017-05-26] MEDS: *HR* Heparin 5,000 UNIT/ML VIAL SQ SCH ×2 (05:52→17:40)
[2017-05-26] MEDS: Levothyroxine 25 MCG TABLET PO SCH (05:54)
[2017-05-26 06:20] LABS: Platelet Clumps Few (Not Present)
[2017-05-26] MEDS: Folic Acid 1 MG TABLET PO SCH (08:03)
[2017-05-26] MEDS: traMADol 50 MG TABLET PO SCH ×3 (08:03→22:13)
[2017-05-26] MEDS: Nystatin SUSP 5 ML UD.LIQ PO SCH ×5 (08:29→22:12)
--- NOTE | 2017-05-26 13:03 | Infectious Disease Progress No ---
Date of Encounter: 05/26/17 Time of Encounter: 13:01 - Assessment and Plan (1) Sepsis Current Visit: Yes Status: Resolved The patient had two SIRS criteria on admission. Likely secondary to osteomyelitis. Improved. WBC has normalized. Tachycardia has resolved. Blood cultures drawn 05/22/17 are NGTD. Qualifiers: Sepsis type: sepsis due to unspecified organism Qualified Code(s): A41.9 - Sepsis, unspecified organism (2) Osteomyelitis Current Visit: No Status: Acute Causative organism unclear. Patient reports chronic ulcers that have regressed over the last three weeks. Referred for admission from the wound clinic. MRI of the pelvis showed findings consistent with osteomyelitis of the right superior, anterior, and posterior actabulum and right femoral head and neck. Additionally, there was osteomyelitis of the left posterior acetabulum as well. ESR >130. CRP 199. IR consulted for bone biopsy. Cultures and pathology are pending. Continue wound care per the wound care team's recommendations. Continue Vancomycin IV. Pharmacy to dose. Goal trough ~15. Continue Zosyn 3.375 grams IV Q8H. Duration of treatment depends on the clinical picture, but likely 6 weeks of IV antibiotics. The patient may benefit from referral to tertiary care center for evaluation by Plastic Surgery for debridement and Orthopedic Oncology given the advanced nature of the infection and wounds. I discussed the fact that controlling the source of infection is imperative for successful treatment of an infection, but he declines transfer at this time and states he want to just try the antibiotics for now. Monitor renal function and for drug toxicity and dose-adjust antibiotics. student financial services counselor to assist with discharge planning. Qualifiers: Osteomyelitis type: subacute Osteomyelitis location: multiple sites Qualified Code(s): M86.29 - Subacute osteomyelitis, multiple sites (3) Septic arthritis Current Visit: Yes Status: Suspected Location: Right hip. Causative organism unclear. Likely secondary to osteomyelitis. Spoke with Dr. Stern yesterday to request hip joint aspiration be done at the same time the bone biopsy was completed, but was told that only one procedure could be done at a time. Ortho consulted. Recommend referral to Orthopedic Oncology for evaluation given the extensive nature of the infection. Continue antibiotics as above. Qualifiers: Septic arthritis location: hip Septic arthritis organism: due to unspecified organism Laterality: right Qualified Code(s): M00.9 - Pyogenic arthritis, unspecified (4) Hypothyroid Current Visit: No Status: Chronic Qualifiers: Hypothyroidism type: acquired Qualified Code(s): E03.9 - Hypothyroidism, unspecified (5) Decubitus ulcers Current Visit: Yes Status: Acute Continue aggressive wound care and offloading. Qualifiers: Pressure ulcer location: contiguous region involving back and buttock Pressure ulcer stage: stage 4 Laterality: unspecified laterality Qualified Code(s): L89.44 - Pressure ulcer of contiguous site of back, buttock and hip, stage 4 (6) Quadriplegia following spinal cord injury Current Visit: No Status: Chronic (7) Anemia Current Visit: Yes Status: Chronic Qualifiers: Anemia type: iron deficiency Iron deficiency anemia type: chronic blood loss Qualified Code(s): D50.0 - Iron deficiency anemia secondary to blood loss (chronic) - Subjective Interval history: Patient seen and examined. No acute events noted overnight. Patient resting quietly in bed. Complains of being tired and states he didn't get much sleep last night. Denies fevers, chills, or rigors. Denies headache or neck pain. Denies chest pain, shortness of breath, or cough. Denies nausea, vomiting, or diarrhea. Denies abdominal pain, urinary complaints, or appetite changes. Denies oral thrush or skin lesions. Infect Dis PN-Objective Data - Labs CBC & Chem 7: 05/26/17 05:12 05/26/17 05:12 Labs: Laboratory Results - last 24 hr 05/25/17 05/25/17 05/26/17 15:40 17:37 05:12 WBC 7.0 RBC 2.73 L Hgb 6.7 L Hct 23.6 L MCV 86.4 MCH 24.5 L MCHC 28.4 L RDW 19.7 H Plt Count 321 MPV 10.0 Immature Gran % 0.6 Seg Neutrophils % 70.5 Lymphocytes % 16.6 Monocytes % 6.7 Eosinophils % 4.3 Basophils % 1.3 Neutrophils # 4.9 Lymphocytes # 1.2 Monocytes # 0.5 Eosinophils # 0.3 Basophils # 0.1 Clumped Platelets Few A Sodium Potassium Chloride Carbon Dioxide BUN Creatinine Est GFR ( Amer) Est GFR (Non-Af Amer) BUN/Creatinine Ratio Glucose Calculated Osmolality Calcium Urine Color Yellow Urine Clarity Clear Urine pH 6.0 Ur Specific [place] 1.023 Urine Protein Trace Urine Glucose (UA) 100 H Urine Ketones Negative Urine Blood Moderate H Urine Nitrite Negative Urine Bilirubin Negative Urine Urobilinogen Normal Ur Leukocyte Esterase Trace H Urine Microscopic RBC 15-30 H Urine Microscopic WBC 5-15 H Ur Squamous Epith Cells Many H Urine Bacteria None Seen Hyaline Casts None Seen Ur Culture Indicated? YES A Vancomycin Trough 13.8 05/26/17 05:12 WBC RBC Hgb Hct MCV MCH MCHC RDW Plt Count MPV Immature Gran % Seg Neutrophils % Lymphocytes % Monocytes % Eosinophils % Basophils % Neutrophils # Lymphocytes # Monocytes # Eosinophils # Basophils # Clumped Platelets Sodium 136 Potassium 3.7 Chloride 107 Carbon Dioxide 22 BUN 11 Creatinine 0.77 Est GFR ( Amer) > 60 Est GFR (Non-Af Amer) > 60 BUN/Creatinine Ratio 14 Glucose 126 H Calculated Osmolality 283 Calcium 7.6 L Urine Color Urine Clarity Urine pH Ur Specific [place] Urine Protein Urine Glucose (UA) Urine Ketones Urine Blood Urine Nitrite Urine Bilirubin Urine Urobilinogen Ur Leukocyte Esterase Urine Microscopic RBC Urine Microscopic WBC Ur Squamous Epith Cells Urine Bacteria Hyaline Casts Ur Culture Indicated? Vancomycin Trough Cultures: Cultures 05/22/17 16:21 Surgical Biopsy Culture - Preliminary Bone 05/22/17 18:40 Blood Culture - Preliminary Peripheral Venipuncture No growth. 05/22/17 18:40 Blood Culture - Preliminary Peripheral Venipuncture No growth. Serology 05/25/17 Range/Units 17:37 Urine Color Yellow (Yellow) Urine Clarity Clear (Clear) Urine pH 6.0 (5.0-8.0) pH Units Ur Specific [place] 1.023 (1.010-1.025) Urine Protein Trace (Neg-Trace) mg/dL Urine Glucose (UA) 100 H (Normal) mg/dL Urine Ketones Negative (Negative) mg/dL Urine Blood Moderate H (Negative) Urine Nitrite Negative (Negative) Urine Bilirubin Negative (Negative) Urine Urobilinogen Normal (Normal) mg/dL Ur Leukocyte Esterase Trace H (Negative) Urine Microscopic RBC 15-30 H (0-3) per hpf Urine Microscopic WBC 5-15 H (0-3) per hpf Ur Squamous Epith Cells Many H (None-Few) per lpf Urine Bacteria None Seen (None-Few) per hpf Hyaline Casts None Seen (None-Few) per lpf Ur Culture Indicated? YES A (NO) - Impressions Impressions Bone Biopsy CT 05/25/17 00:00 IMPRESSION: Successful CT guided ischial biopsy for the purpose of osteomyelitis culture. D/ / 05/25/2017 14:00:54 Maddison Stern MD / nadine Interpreting Provider: Maddison Stern MD Exam - Constitutional Vitals: Temp Pulse Resp BP Pulse Ox 97.3 F L 59 16 91/59 99 05/26/17 11:00 05/26/17 11:00 05/26/17 11:00 05/26/17 11:00 05/26/17 11:00 General appearance: cooperative, no acute distress, obese - Head Head exam: Present: atraumatic, normal inspection, normocephalic - Eye Eye exam: Present: EOMI, normal appearance Pupils: Present: normal accommodation - ENT ENT exam: Present: mucous membranes moist - Neck Neck exam: Present: normal inspection - Respiratory Respiratory exam: Present: CTAB. Absent: rales, respiratory distress, rhonchi, wheezes - Cardiovascular Cardiovascular exam: Present: RRR, +S1, +S2 - GI/Abdominal GI/Abdominal exam: Present: distended (obese), normal bowel sounds, soft. Absent: tenderness Additional comments: Suprapubic catheter noted to be draining clear yellow urine. - Extremities Exam Extremities exam: Present: pedal edema (1+ BLE). Absent: joint swelling, tenderness - Back Exam Additional comments: Sacral/perineal wound dressings C/D/I. - Neurological Exam Neurological exam: Present: alert, oriented X3. Absent: no focal deficits ( Paralysis noted to the BLE. Decreased movement and sensation noted to the BUE.) - Psychiatric Psychiatric exam: Present: normal affect, normal mood - Skin Skin exam: Present: dry, intact, normal color, warm Consult Discharge Plan - Plan Referrals: Argenis Katz CNP [Advanced Practice Nurse] - 06/05/17 8:40 am Keyona Joseph CNP [Primary Care Provider] -
[2017-05-26] MEDS ORDERED: 0.9 % Sodium Chloride 250 ML ONE ×2 (14:29→17:46)
--- NOTE | 2017-05-26 16:14 | Internal Med Progress Note ---
Date of Encounter: 05/26/17 Time of Encounter: 10:25 - Assessment and plan (1) Septic arthritis Current Visit: Yes Status: Suspected Assessment and plan: Continue IV antibiotics. The patient has been evaluated by orthopedics and recommended evaluation by orthopedic oncologist due to extensive lesions. He has so far refused transfer to tertiary [facility] for this. Will refer him to [facility] at time of discharge. Continue vancomycin and Zosyn. Follow infectious disease recommendations. High risk for complications. Qualifiers: Septic arthritis location: hip Septic arthritis organism: due to unspecified organism Laterality: right Qualified Code(s): M00.9 - Pyogenic arthritis, unspecified (2) Osteomyelitis Current Visit: Yes Status: Acute Assessment and plan: Osteomyelitis involving the pelvic region. Continue current antibiotics. Bone biopsy done yesterday. Will follow culture results. Infectious disease recommends 6 weeks of IV antibiotics. We will adjust antibiotics according to culture results. High risk for complications. Qualifiers: Osteomyelitis type: subacute Osteomyelitis location: multiple sites Qualified Code(s): M86.29 - Subacute osteomyelitis, multiple sites (3) Pressure ulcer of coccygeal region, stage 4 Current Visit: Yes Status: Chronic Assessment and plan: Continue local wound care. Frequent repositioning. Follow up outpatient with wound clinic. Patient does not want to be transferred to tertiary [facility] at this time. (4) Anemia Current Visit: Yes Status: Chronic Assessment and plan: hemoglobin 6.7 today. We will transfuse 2 units packed red blood cells. Qualifiers: Anemia type: iron deficiency Iron deficiency anemia type: chronic blood loss Qualified Code(s): D50.0 - Iron deficiency anemia secondary to blood loss (chronic) (5) DVT prophylaxis Current Visit: Yes Status: Acute Assessment and plan: With subcutaneous heparin (6) Hypothyroid Current Visit: No Status: Chronic Assessment and plan: Continue levothyroxin Qualifiers: Hypothyroidism type: acquired Qualified Code(s): E03.9 - Hypothyroidism, unspecified (7) Sepsis Current Visit: Yes Status: Resolved Assessment and plan: Due to osteomyelitis and septic arthritis. Qualifiers: Sepsis type: sepsis due to unspecified organism Qualified Code(s): A41.9 - Sepsis, unspecified organism - Subjective Interval history: Patient is somnolent. Awakes to sternal rub. Complaints of pain in his lower back. Denies any fever or chills. Tolerating oral diet well. No nausea or vomiting. - Constitutional Vitals: Temp Pulse Resp BP Pulse Ox 97.3 F L 67 16 84/53 96 05/26/17 15:25 05/26/17 15:25 05/26/17 15:25 05/26/17 15:10 05/26/17 15:25 General appearance: Present: A&O X 3, morbidly obese, no acute distress, answers questions appropriately - Respiratory Respiratory exam: Present: CTAB. Absent: accessory muscle use, rales, rhonchi, wheezes - Cardiovascular Cardiovascular exam: Present: RRR, +S1, +S2. Absent: diastolic murmur, gallop, rubs, systolic murmur - GI/Abdominal GI/Abdominal exam: Present: normal bowel sounds, soft, no peritoneal signs. Absent: distended, tenderness - Extremities Exam Extremities exam: Present: tenderness (right hip region), warm, radial pulses palpable and symmetrical. Absent: calf tenderness, cyanotic, pedal edema - Neurological Exam Neurological exam: Present: alert, oriented X3, no focal deficits. Absent: facial droop, speech deficit - Skin Skin exam: Present: dry, intact Internal Medicine: Result - Labs CBC & Chem 7: 05/26/17 05:12 05/26/17 05:12 Labs: Short CBC 05/26/17 Range/Units 05:12 WBC 7.0 (4.3-11.1) K/mcL Hgb 6.7 L (12.9-16.9) g/dL Hct 23.6 L (37.5-50.1) % Plt Count 321 (140-400) K/mcL Neutrophils # 4.9 (1.6-8.9) K/mcL BMP 05/26/17 05:12 Sodium 136 Potassium 3.7 Chloride 107 Carbon Dioxide 22 BUN 11 Creatinine 0.77 Glucose 126 H Calcium 7.6 L Urine 05/25/17 Range/Units 17:37 Urine Color Yellow (Yellow) Urine Clarity Clear (Clear) Urine pH 6.0 (5.0-8.0) pH Units Ur Specific [facility] 1.023 (1.010-1.025) Urine Protein Trace (Neg-Trace) mg/dL Urine Glucose (UA) 100 H (Normal) mg/dL - ABG Interpretation ABG results: PT/INR, D-dimer PT 12.2 Seconds (9.4-12.1) H 05/22/17 14:26 Consult Discharge Plan - Plan Referrals: Argenis Katz CNP [Advanced Practice Nurse] - 06/05/17 8:40 am Keyona Joseph CNP [Primary Care Provider] -
[2017-05-26] MEDS: Vancomycin 1,250 MG in D5% in Water 250 ML IVPB SCH (20:51)
[2017-05-27] MEDS: *HR* OxyCODONE/APAP 10/325 TABLET PO SCH ×2 (01:16→04:23)
[2017-05-27] MEDS: Baclofen 10 MG TABLET PO SCH ×5 (01:21→17:27)
[2017-05-27] MEDS: tiZANidine 4 MG TABLET PO SCH ×9 (01:21→21:19)
[2017-05-27] MEDS: traZODone 50 MG TABLET PO SCH (01:22)
[2017-05-27] MEDS: 0.9 % Sodium Chloride 1,000 ML IVC SCH (01:26)
[2017-05-27] MEDS: Piperacillin/Tazobactam 3.375 GM in D5% in Water 50 ML IVPB SCH ×3 (04:22→21:17)
[2017-05-27] MEDS: *HR* Heparin 5,000 UNIT/ML VIAL SQ SCH ×2 (05:44→18:39)
[2017-05-27] MEDS: Levothyroxine 25 MCG TABLET PO SCH (05:44)
[2017-05-27 06:20] LABS: Basophils # 0.1 K/mcL (0.0-0.2); Eosinophils # 0.3 K/mcL (0.0-0.6); Eosinophils % 2.8 %; Hematocrit 30.6 % (37.5-50.1); Hemoglobin 9.2 g/dL (12.9-16.9); Immature Granulocytes % 0.5 % (0-4); Lymphocytes # 1.2 K/mcL (0.6-4.6); Lymphocytes % 13.6 %; Mean Corpuscular HGB Conc 30.1 g/dL (31.6-35.5); Mean Corpuscular Hemoglobin 25.5 pg (28.0-33.3); Mean Corpuscular Volume 84.8 fL (83.0-100.0); Mean Platelet Volume 10.3 fL (9.4-12.4); Monocytes # 0.5 K/mcL (0.0-1.3); Monocytes % 5.7 %; Neutrophils # 6.7 K/mcL (1.6-8.9); Platelet Count 324 K/mcL (140-400); Red Blood Count 3.61 M/mcL (4.19-5.50); Red Cell Distribution Width 18.7 % (11.5-14.5); Segmented Neutrophils % 76.4 %
[2017-05-27 06:44] LABS: BUN/Creatinine Ratio 15 (6-26); Blood Urea Nitrogen 12 mg/dL (8-26); Calcium 7.9 mg/dL (8.6-10.8); Carbon Dioxide 23 mEq/L (19-29); Chloride 109 mEq/L (98-109); Glucose 127 mg/dL (70-99); Osmolality,Calculated 291 (280-300); Sodium 140 mEq/L (136-145); eGFR For African Americans > 60 (> 60); eGFR For Non-African Americans > 60 (> 60)
[2017-05-27] MEDS: Folic Acid 1 MG TABLET PO SCH (10:32)
[2017-05-27] MEDS: Nystatin SUSP 5 ML UD.LIQ PO SCH ×4 (10:32→21:17)
[2017-05-27] MEDS: traMADol 50 MG TABLET PO SCH ×3 (10:32→21:18)
[2017-05-27] MEDS ORDERED: *HR* OxyCODONE/APAP 10/325 TABLET PO PRN (11:49)
--- NOTE | 2017-05-27 11:54 | Infectious Disease Progress No ---
Date of Encounter: 05/27/17 Time of Encounter: 11:52 - Assessment and Plan (1) Sepsis Current Visit: Yes Status: Resolved The patient had two SIRS criteria on admission. Likely secondary to osteomyelitis. Improved. WBC has normalized. Tachycardia has resolved. Blood cultures drawn 05/22/17 are NGTD. Qualifiers: Sepsis type: sepsis due to unspecified organism Qualified Code(s): A41.9 - Sepsis, unspecified organism (2) Osteomyelitis Current Visit: Yes Status: Acute Causative organism unclear. Bone biopsy culture gram stain shows GNR, but concern for polymicrobial infection. Patient reports chronic ulcers that have regressed over the last three weeks. MRI of the pelvis showed findings consistent with osteomyelitis of the right superior, anterior, and posterior actabulum and right femoral head and neck. Additionally, there was osteomyelitis of the left posterior acetabulum as well. ESR >130. CRP 199. IR consulted for bone biopsy. Pathology shows chronic OM. Culture gram stain shows GNR. Continue wound care per the wound care team's recommendations. Continue Vancomycin IV. Pharmacy to dose. Goal trough ~15. Continue Zosyn 3.375 grams IV Q8H. Duration of treatment depends on the clinical picture, but likely 6 weeks of IV antibiotics. The patient would benefit from referral to tertiary care center for evaluation by Plastic Surgery for debridement and Orthopedic Oncology given the advanced nature of the infection and wounds. I discussed the fact that controlling the source of infection is imperative for successful treatment of an infection, but he declines transfer at this time and states he want to just try the antibiotics for now. Monitor renal function and for drug toxicity and dose-adjust antibiotics. printing services coordinator to assist with discharge planning. EPIV in place. Will need to switch out for PICC if discharged on Vancomycin. Weekly CBC, BUN/Cr, ESR, CRP, and Vanc trough (if discharged on Vanc). Weekly EPIV care per protocol. Follow up with ID 06/10/17 at 0840. ID service will be unavailable for rounding until 06/03/17, but will be available by phone to discuss antibiotic recommendations once cultures resulted. Qualifiers: Osteomyelitis type: subacute Osteomyelitis location: multiple sites Qualified Code(s): M86.29 - Subacute osteomyelitis, multiple sites (3) Septic arthritis Current Visit: Yes Status: Suspected Location: Right hip. Causative organism unclear. Likely secondary to osteomyelitis. Discussed with the primary team. Requested aspiration of the hip joint, but this was not done. Ortho consulted. Recommend referral to Orthopedic Oncology for evaluation given the extensive nature of the infection. Continue antibiotics as above. Qualifiers: Septic arthritis location: hip Septic arthritis organism: due to unspecified organism Laterality: right Qualified Code(s): M00.9 - Pyogenic arthritis, unspecified (4) Hypothyroid Current Visit: No Status: Chronic Qualifiers: Hypothyroidism type: acquired Qualified Code(s): E03.9 - Hypothyroidism, unspecified (5) Decubitus ulcers Current Visit: Yes Status: Acute Continue aggressive wound care and offloading. Qualifiers: Pressure ulcer location: contiguous region involving back and buttock Pressure ulcer stage: stage 4 Laterality: unspecified laterality Qualified Code(s): L89.44 - Pressure ulcer of contiguous site of back, buttock and hip, stage 4 (6) Quadriplegia following spinal cord injury Current Visit: No Status: Chronic (7) Anemia Current Visit: Yes Status: Chronic Qualifiers: Anemia type: iron deficiency Iron deficiency anemia type: chronic blood loss Qualified Code(s): D50.0 - Iron deficiency anemia secondary to blood loss (chronic) - Subjective Interval history: Patient seen and examined. No acute events noted overnight. Patient resting quietly in bed with eyes closed. Awakens easily. Denies fevers, chills, or rigors. Denies headache or neck pain. Complains of chronic bilateral shoulder pain. Denies chest pain, shortness of breath, or cough. Denies nausea, vomiting , or diarrhea. Denies abdominal pain, urinary complaints, or appetite changes. Denies oral thrush or skin lesions. States he wants to go home today. Infect Dis PN-Objective Data - Labs CBC & Chem 7: 05/27/17 06:03 05/27/17 06:03 Labs: Laboratory Results - last 24 hr 05/26/17 05/27/17 05/27/17 13:49 06:03 06:03 WBC 8.8 RBC 3.61 L Hgb 9.2 L D Hct 30.6 L MCV 84.8 MCH 25.5 L MCHC 30.1 L RDW 18.7 H Plt Count 324 MPV 10.3 Immature Gran % 0.5 Seg Neutrophils % 76.4 Lymphocytes % 13.6 Monocytes % 5.7 Eosinophils % 2.8 Basophils % 1.0 Neutrophils # 6.7 Lymphocytes # 1.2 Monocytes # 0.5 Eosinophils # 0.3 Basophils # 0.1 Sodium 140 Potassium 4.0 Chloride 109 Carbon Dioxide 23 BUN 12 Creatinine 0.79 Est GFR ( Amer) > 60 Est GFR (Non-Af Amer) > 60 BUN/Creatinine Ratio 15 Glucose 127 H Calculated Osmolality 291 Calcium 7.9 L Blood Type O POSITIVE Antibody Screen NEGATIVE Crossmatch See Detail Cultures: Cultures 05/22/17 16:20 Anaerobic Culture - Final Bone No anaerobes were recovered. 05/25/17 17:37 Urine Culture - Final Urine,Clean Catch No growth. 05/22/17 16:21 Surgical Biopsy Culture - Preliminary Bone Gram Negative [place] 05/22/17 18:40 Blood Culture - Preliminary Peripheral Venipuncture No growth. 05/22/17 18:40 Blood Culture - Preliminary Peripheral Venipuncture No growth. Serology 05/25/17 Range/Units 17:37 Urine Color Yellow (Yellow) Urine Clarity Clear (Clear) Urine pH 6.0 (5.0-8.0) pH Units Ur Specific [place] 1.023 (1.010-1.025) Urine Protein Trace (Neg-Trace) mg/dL Urine Glucose (UA) 100 H (Normal) mg/dL Urine Ketones Negative (Negative) mg/dL Urine Blood Moderate H (Negative) Urine Nitrite Negative (Negative) Urine Bilirubin Negative (Negative) Urine Urobilinogen Normal (Normal) mg/dL Ur Leukocyte Esterase Trace H (Negative) Urine Microscopic RBC 15-30 H (0-3) per hpf Urine Microscopic WBC 5-15 H (0-3) per hpf Ur Squamous Epith Cells Many H (None-Few) per lpf Urine Bacteria None Seen (None-Few) per hpf Hyaline Casts None Seen (None-Few) per lpf Ur Culture Indicated? YES A (NO) Exam - Constitutional Vitals: Temp Pulse Resp BP Pulse Ox 97.6 F 59 16 104/76 100 05/27/17 10:17 05/27/17 10:17 05/27/17 10:05/27/17 10:05/27/17 10:43 General appearance: cooperative, no acute distress, obese - Head Head exam: Present: atraumatic, normal inspection, normocephalic - Eye Eye exam: Present: EOMI, normal appearance, PERRL Pupils: Present: normal accommodation - ENT ENT exam: Present: mucous membranes moist - Neck Neck exam: Present: normal inspection - Respiratory Respiratory exam: Present: CTAB. Absent: rales, respiratory distress, rhonchi, wheezes - Cardiovascular Cardiovascular exam: Present: RRR, +S1, +S2 - GI/Abdominal GI/Abdominal exam: Present: distended (obese), normal bowel sounds, soft. Absent: tenderness Additional comments: Suprapubic catheter noted to be draining clear yellow urine. - Extremities Exam Extremities exam: Present: pedal edema (1+ BLE). Absent: joint swelling, tenderness - Back Exam Additional comments: Patient declines turning to allow me to evaluate. - Neurological Exam Neurological exam: Present: alert, oriented X3. Absent: no focal deficits ( Diminished movement of the BUE. Paralysis of the BLE.) - Psychiatric Psychiatric exam: Present: normal affect, normal mood - Skin Skin exam: Present: dry, intact, normal color, warm Consult Discharge Plan - Plan Referrals: Argenis Katz CNP [Advanced Practice Nurse] - 06/05/17 8:40 am Keyona Joseph CNP [Primary Care Provider] - Tamara Leigh CNP [Advanced Practice Nurse] - 06/10/17 8:40 am
--- NOTE | 2017-05-27 13:49 | Internal Med Progress Note ---
Date of Encounter: 05/27/17 Time of Encounter: 10:15 - Assessment and plan (1) Septic arthritis Current Visit: Yes Status: Suspected Assessment and plan: Continue current antibiotics. Local wound cultures positive for gram-negative rods. We will await final culture results. Qualifiers: Septic arthritis location: hip Septic arthritis organism: due to unspecified organism Laterality: right Qualified Code(s): M00.9 - Pyogenic arthritis, unspecified (2) Osteomyelitis Current Visit: Yes Status: Acute Assessment and plan: Chronic osteomyelitis by pathology results. Awaiting bone biopsy culture results. Continue current antibiotics. Patient will most likely need 6 weeks of IV antibiotics will be Qualifiers: Osteomyelitis type: subacute Osteomyelitis location: multiple sites Qualified Code(s): M86.29 - Subacute osteomyelitis, multiple sites (3) Pressure ulcer of coccygeal region, stage 4 Current Visit: Yes Status: Chronic Assessment and plan: Continue local wound care. He will continue to follow up with wound clinic after discharge (4) Anemia Current Visit: Yes Status: Chronic Assessment and plan: Improved after transfusion. Hemoglobin 9.2 today. Has iron deficiency and folic acid deficiency. On oral replacement therapy. Qualifiers: Anemia type: iron deficiency Iron deficiency anemia type: chronic blood loss Qualified Code(s): D50.0 - Iron deficiency anemia secondary to blood loss (chronic) (5) DVT prophylaxis Current Visit: Yes Status: Acute Assessment and plan: On Subcutaneous heparin (6) Hypothyroid Current Visit: Yes Status: Chronic Assessment and plan: Continue levothyroxine Qualifiers: Hypothyroidism type: acquired Qualified Code(s): E03.9 - Hypothyroidism, unspecified (7) Sepsis Current Visit: Yes Status: Resolved Assessment and plan: Continue antibiotics for 6 weeks per infectious disease recommendations. Qualifiers: Sepsis type: sepsis due to unspecified organism Qualified Code(s): A41.9 - Sepsis, unspecified organism - Subjective Interval history: Patient is lying in bed. Appears comfortable. Doing well overall. No new complaints at this time. Pain in the gluteal region and right hip is well controlled. - Constitutional Vitals: Temp Pulse Resp BP Pulse Ox 97.6 F 59 16 104/76 100 05/27/17 10:17 05/27/17 10:17 05/27/17 10:17 05/27/17 10:17 05/27/17 10:43 General appearance: Present: A&O X 3, morbidly obese, no acute distress, answers questions appropriately - Respiratory Respiratory exam: Present: CTAB. Absent: accessory muscle use, rales, rhonchi, wheezes - Cardiovascular Cardiovascular exam: Present: RRR, +S1, +S2. Absent: diastolic murmur, gallop, rubs, systolic murmur - GI/Abdominal GI/Abdominal exam: Present: normal bowel sounds, soft, no peritoneal signs. Absent: distended, tenderness - Neurological Exam Neurological exam: Present: alert, oriented X3. Absent: facial droop, speech deficit - Skin Skin exam: Present: dry, intact Additional comments: Multiple decubitus ulcers covered with bandages in extremities and pelvic region Internal Medicine: Result - Labs CBC & Chem 7: 05/27/17 06:03 05/27/17 06:03 Labs: Short CBC 05/27/17 Range/Units 06:03 WBC 8.8 (4.3-11.1) K/mcL Hgb 9.2 L D (12.9-16.9) g/dL Hct 30.6 L (37.5-50.1) % Plt Count 324 (140-400) K/mcL Neutrophils # 6.7 (1.6-8.9) K/mcL BMP 05/27/17 06:03 Sodium 140 Potassium 4.0 Chloride 109 Carbon Dioxide 23 BUN 12 Creatinine 0.79 Glucose 127 H Calcium 7.9 L - ABG Interpretation ABG results: PT/INR, D-dimer PT 12.2 Seconds (9.4-12.1) H 05/22/17 14:26 Consult Discharge Plan - Plan Referrals: Tamara Leigh CNP [Advanced Practice Nurse] - 06/10/17 8:40 am Argenis Katz CNP [Advanced Practice Nurse] - 06/05/17 8:40 am Keyona Joseph CNP [Primary Care Provider] -
[2017-05-27] MEDS ORDERED: Lidocaine -MPF 1% 5 ML AMPUL INFILT ONE (14:16)
[2017-05-27] MEDS: Vancomycin 1,250 MG in D5% in Water 250 ML IVPB SCH (17:27)
[2017-05-27] MEDS: Furosemide 20 MG TABLET PO SCH (21:18)
[2017-05-28] MEDS: Baclofen 10 MG TABLET PO SCH ×4 (01:38→17:06)
[2017-05-28] MEDS: tiZANidine 4 MG TABLET PO SCH ×5 (01:38→17:09)
[2017-05-28] MEDS: traZODone 50 MG TABLET PO SCH (01:38)
[2017-05-28] MEDS: *HR* Heparin 5,000 UNIT/ML VIAL SQ SCH (06:45)
[2017-05-28] MEDS: Levothyroxine 25 MCG TABLET PO SCH (06:46)
[2017-05-28] MEDS: Piperacillin/Tazobactam 3.375 GM in D5% in Water 50 ML IVPB SCH ×2 (07:44→14:15)
[2017-05-28 08:11] VITALS: BP 101/69
[2017-05-28] MEDS: Folic Acid 1 MG TABLET PO SCH (08:22)
[2017-05-28] MEDS: Nystatin SUSP 5 ML UD.LIQ PO SCH ×3 (08:22→17:06)
[2017-05-28] MEDS: traMADol 50 MG TABLET PO SCH ×2 (08:24→14:14)
[2017-05-28] MEDS: Furosemide 20 MG TABLET PO SCH ×2 (08:24→17:06)
--- NOTE | 2017-05-28 10:47 | Discharge Summary ---
Date of Encounter: 05/28/17 Time of Encounter: 10:40 - Discharge Diagnosis (1) Septic arthritis Priority: Primary Status: Suspected Qualifiers: Septic arthritis location: hip Septic arthritis organism: due to unspecified organism Laterality: right Qualified Code(s): M00.9 - Pyogenic arthritis, unspecified (2) Osteomyelitis Priority: Secondary Status: Acute Qualifiers: Osteomyelitis type: subacute Osteomyelitis location: multiple sites Qualified Code(s): M86.29 - Subacute osteomyelitis, multiple sites (3) Pressure ulcer of coccygeal region, stage 4 Priority: Secondary Status: Chronic (4) Anemia Priority: Secondary Status: Chronic Qualifiers: Anemia type: iron deficiency Iron deficiency anemia type: chronic blood loss Qualified Code(s): D50.0 - Iron deficiency anemia secondary to blood loss (chronic) (5) DVT prophylaxis Priority: Secondary Status: Acute (6) Hypothyroid Priority: Secondary Status: Chronic Qualifiers: Hypothyroidism type: acquired Qualified Code(s): E03.9 - Hypothyroidism, unspecified (7) Sepsis Priority: Secondary Status: Resolved Qualifiers: Sepsis type: sepsis due to unspecified organism Qualified Code(s): A41.9 - Sepsis, unspecified organism - Discharge Medications Prescriptions: Ferrous Sulfate 325 mg PO DAILY@0800 #30 tablet Folic Acid 1 mg PO DAILY #30 tablet Zvdnqabhhpdz-Eqlr-Npssdiik,Iso [Zosyn 4.5 gm/100 ml Galaxy Bag] 4.5 gm IV Q8H 42 Days froz.piggy Vancomycin HCl in Dextrose 5 % [Vancomycin-D5w 1.25 Gram/250Ml] 1.25 gm IV DAILY 37 Days pkg Home Medications: Baclofen [Lioresal] 20 mg PO QID 03/01/15 [History] Ibuprofen [Motrin] 400 mg PO Q6HR PRN 03/01/15 [History] Levothyroxine [Synthroid] 25 mcg PO 0630 03/01/15 [History] OxyCODONE/APAP 10/325 [Percocet 10/325] 1 each PO Q6HR 03/01/15 [History] Oxybutynin [Ditropan] 5 mg PO TID 03/01/15 [History] traMADol [Ultram] 100 mg PO TID 03/01/15 [History] Tizanidine HCl [Zanaflex] 4 mg PO TID 11/30/15 [History] Furosemide [Lasix] 40 mg PO DAILY 05/16/16 [History] Collagenase Oint [Santyl] 1 appl TP DAILY 05/22/17 [History] Nystatin [Nystatin Suspension] 100,000 units PO QID 05/22/17 [History] Oxybutynin [Ditropan] 5 mg PO TID 05/22/17 [History] Tizanidine HCl [Zanaflex] 2 mg PO TID 05/22/17 [History] Trazodone HCl 100 mg PO HS 05/22/17 [History] Ferrous Sulfate 325 mg PO DAILY@0800 #30 tablet 05/28/17 [Rx] Folic Acid 1 mg PO DAILY #30 tablet 05/28/17 [Rx] Zeortuaxbezu-Ulcy-Ikkkwvhd,Iso [Zosyn 4.5 gm/100 ml Galaxy Bag] 4.5 gm IV Q8H 42 Days froz.piggy 05/28/17 [Rx] Vancomycin HCl in Dextrose 5 % [Vancomycin-D5w 1.25 Gram/250Ml] 1.25 gm IV DAILY 37 Days pkg 05/28/17 [Rx] Allergies/Adverse Reactions: 3 Allergy/AdvReac Type Severity Reaction Status Date / Time lorazepam [From Ativan] Allergy Nightmare Verified 03/01/15 11:54 Date of admission: 05/22/17 12:03 Primary care physician: Kyeona Joseph CNP Consults: 05/22/17 13:34 Consult to Rag Inspector [CONS] Routine Reason for SW Consult: discharge planning 05/22/17 13:38 Consult to Hospitalist [CONS] Routine Consulting Provider: Hospitalist Shelly Reason for Consult: medical manamgement, spoke with Dr Marsh and he aggreed to take pt on hospitalist service tomorrow Time Notified: 11:00 Call Completed: Yes Consult to Infectious Diseases [CONS] Routine Consulting Provider: Infectious Disease Radha Reason for Consult: osteomyelitis pelvis Time Notified: 13:39 Call Completed: Yes 05/22/17 13:39 Consult to Interventional Radiology [CONS] Routine Consulting Provider: Radiology Interventional Cols Reason for Consult: getting mri pelvis for osteomyelitis, need bone biopsy Call Completed: No 05/23/17 15:12 Consult to Orthopedic Surgery [CONS] Routine Consulting Provider: [facility]oped[facility] Reason for Consult: Suspect septic arthritis Call Completed: Yes 05/27/17 14:16 Consult to Invasive Line Access Team [CONS] Routine Reason for Consult: Picc Line Insertion Line Type: PICC Discharging clinician: Roly Stephenson Anticipated date of discharge: 05/28/17 - Patient Status Disposition: Home, Self-Care Condition: Fair Functional capacity at discharge: bed bound Overall status at discharge: patient is progressing back to baseline - Discharge Instructions Instructions: Sulfamethoxazole/Trimethoprim (By mouth), Hypothyroidism (DC), Sepsis (DC), Anemia (GEN) Follow Up With: Wound,Clinic [Other] - 06/26/17 10:30 am Orthopedic,Oncologist [facility] [Other] Tamara Leigh CNP [Advanced Practice Nurse] - 06/10/17 8:40 am Keyona Joseph CNP [Primary Care Provider] - 06/02/17 1:00 pm Additional Instructions: Follow up with orthopedic oncology at [facility] regarding multiple decubitus ulcers in pelvic region and right hip JOANNE. Follow up with wound clinic within 1 week - Diet and Activity Activity: as per physical therapy Diet: low fat, low cholesterol, low salt diet Hospital course: Mr. Ram is a 46 year old male patient with history of quadriplegia and multiple decubitus ulcers will follow some. Wound care as outpatient was admitted here for acute wound infections involving his decubitus ulcers in the pelvic region and right hip region. He was suspected of having osteomyelitis and septic arthritis and was started on treatment with IV antibiotics. Wound cultures were sent from his sacral wounds and they are positive for Pseudomonas which is sensitive to Zosyn. Patient will be discharged on Zosyn to treat these wounds. Bone biopsy of the left ischial region was done which showed presence of chronic osteomyelitis. A sample from his right hip was unable to be obtained. Orthopedics was consulted and they recommended referral to a tertiary care center for evaluation by orthopedic oncology. However, patient did not wish to be transferred there. Infectious disease was also consulted and patient's care. Per the recommendations, patient will be discharged on vancomycin and Zosyn to complete 6 weeks of IV antibiotic therapy. He will eventually need at significant reconstruction and closure of his wounds and will be referred to [facility] for further management as long as patient is willing to go there. In the meantime, he will follow up with wound clinic and infectious disease as outpatient. His ESR, CRP, basic panel and vancomycin trough levels will be followed through home health. Patient does have chronic anemia likely due to chronic disease. He did receive 2 unit packed red blood cell transfusion during his stay here. He has iron and folic acid deficiency and will be taking supplements for this. - Time Spent with Patient Total time spent providing and/or coordinating discharge services: Greater than 30 minutes (45 min) - Constitutional Vitals: Temp Pulse Resp BP Pulse Ox 97.7 F 75 18 101/69 97 05/28/17 07:45 05/28/17 07:45 05/28/17 07:45 05/28/17 07:45 05/28/17 07:45 General appearance: Present: A&O X 3, morbidly obese, no acute distress, answers questions appropriately - Respiratory Respiratory exam: Present: CTAB. Absent: accessory muscle use, rales, rhonchi, wheezes - Cardiovascular Cardiovascular exam: Present: RRR, +S1, +S2. Absent: diastolic murmur, gallop, rubs, systolic murmur - GI/Abdominal GI/Abdominal exam: Present: normal bowel sounds, soft, no peritoneal signs. Absent: distended, tenderness - Skin Skin exam: Present: dry, intact Additional comments: multiple decubitus ulcers in varying stages in pelvic region and extremities
--- NOTE | 2017-05-28 10:53 | Physician Discharge Referral ---
Home Health/Hosp Referral Info Transfer to: Home Health Provider in Charge Post Discharge: Other (Infectious disease Tamara Leigh) - Diagnosis (1) Septic arthritis Priority: Primary Status: Suspected (2) Osteomyelitis Priority: Secondary Status: Acute (3) Pressure ulcer of coccygeal region, stage 4 Priority: Secondary Status: Chronic (4) Anemia Priority: Secondary Status: Chronic (5) DVT prophylaxis Priority: Secondary Status: Acute (6) Hypothyroid Priority: Secondary Status: Chronic (7) Sepsis Priority: Secondary Status: Resolved - Respiratory Orders Smoking Cessation: Smoking cessation has been advised. For more information, call the [employer] Tobacco Quit Line at 2-373-DUWN-NOW. - Diet/Nutrition Diet/Nutrition Orders: No Added Salt (SILVERIO), Cardiac - Activity Activity Orders: Bedrest - Services Needed Following services are medically necessary services: Physical Therapy, Occupational Therapy Home Care Orders: Please check CBC, basic panel, CRP, ESR, vancomycin trough level on every Thursday while patient is receiving intravenous antibiotics. - Wound 1 Status Wound 1 Care Status: Active - Wound Assessment 1 Wound Location Body 1: Present: Left, Anterior Wound location Body Site 1: Ankle Wound Type 1: Present: Pressure Ulcer Wound Staging 1: Stage IV Wound Bed Appearance 1: Present: Dusky Red Percent of Wound Bed Granulated/Red: 80 Percent of Wound Bed Fibrin/Yellow 1: 20 Wound Surrounding Tissue Appearance (Periwound) 1: Present: Intact Surrounding Tissue Temperature: Warm Wound Drainage Amount 1: Moderate Wound Drainage Odor: No Odor Wound Length: 0.4 Wound Width: 0.4 Wound Depth: 0.8 Wound Square Centimeters: 0.16 Current Wound Volume: 0.1 - Wound 2 Status Wound 2 Care Status: Active - Wound Assessment 2 Wound Location Body 2: Left, Lateral Wound location Body Site 2: Foot Wound Type 2: Present: Pressure Ulcer Wound Staging 2: Stage IV Wound Bed Appearance 2: Present: [place], Yellow Percent of Wound Bed Granulated/Red 2: 50 Percent of Wound Bed Fibrin/Yellow 2: 50 Wound Surrounding Tissue Appearance (Periwound) 2: Present: Intact Surrounding Tissue Temperature 2: Warm Wound Drainage Amount 2: Moderate Wound Drainage Description 2: Present: Serosanguineous Wound Drainage Odor 2: No Odor Wound Length 2: 1 Wound Width 2: 0.5 Wound Depth 2: 0.3 Wound Square Centimeters 2: 0.50 Current Wound Volume 2: 0.2 - Wound 3 Status Wound 3 Care Status: Epithelialized - Wound Assessment 3 Wound Location Body 3: Present: Right, Plantar Wound location Body Site 3: Foot Wound Type 3: Present: Pressure Ulcer Wound Staging 3: Stage IV Wound Bed Appearance 3: Present: Epithelialized - Wound 4 Status Wound 4 Care Status: Active - Wound Assessment 4 Wound Location Body 4: Present: Left, Medial Wound location Body Site 4: Ankle Wound Type 4: Present: Pressure Ulcer Wound Staging 4: Stage IV Wound Degree of Burn 4: Present: Second Degree Wound Bed Appearance 4: Present: Dusky Red Percent of Wound Bed Granulated/Red 4: 50 Percent of Wound Bed Fibrin/Yellow 4: 50 Wound Surrounding Tissue Appearance (Periwound) 4: Present: Intact Surrounding Tissue Temperature 4: Warm Wound Drainage Amount 4: Moderate Wound Drainage Description 4: Present: Serosanguineous Wound Drainage Odor 4: No Odor Wound Length 4: 0.7 Wound Width 4: 0.3 Wound Depth 4: 1 Wound Square Centimeters 4: 0.21 Current Wound Volume 4: 0.2 - Wound 5 Status Wound 5 Care Status: Epithelialized - Wound Assessment 5 Wound Location Body 5: Present: Left, Posterior Wound location Body Site 5: Thigh Wound Type 5: Present: Pressure Ulcer Wound Staging 5: Stage III Wound Bed Appearance 5: Present: Epithelialized - Wound 6 Status Wound 6 Care Status: Active - Wound Assessment 6 Wound location Body Site 6: Perineal Wound Type 6: Present: Pressure Ulcer Wound Staging 6: Stage IV Wound Bed Appearance 6: Present: Beefy Red Percent of Wound Bed Granulated/Red 6: 80 Percent of Wound Bed Fibrin/Yellow 6: 20 Wound Surrounding Tissue Appearance (Periwound) 6: Present: Intact Surrounding Tissue Temperature 6: Warm Wound Drainage Amount 6: Large Wound Drainage Description 6: Present: Serosanguineous Wound Drainage Odor 6: No Odor Wound Length 6: 12 Wound Width 6: 5 Wound Depth 6: 1.5 Wound Square Centimeters 6: 60 Current Wound Volume 6: 81.0 - Wound 7 Status Wound 7 Care Status: Active - Wound Assessment 7 Wound location Body Site 7: Coccyx Wound Type 7: Present: Pressure Ulcer Wound Staging 7: Stage IV Wound Bed Appearance 7: Present: Beefy Red, Yellow Percent of Wound Bed Granulated/Red 7: 60 Percent of Wound Bed Fibrin/Yellow 7: 40 Wound Surrounding Tissue Appearance (Periwound) 7: Present: Intact Surrounding Tissue Temperature 7: Warm Wound Drainage Amount 8: Large Wound Drainage Description 7: Present: Serosanguineous Wound Drainage Odor 7: No Odor Wound Length 7: 12.5 Wound Width 7: 7 Wound Depth 7: 3 Wound Square Centimeters 7: 87.50 Current Wound Volume 7: 262.5 Wound Undermining Position 7: 7-3 o'clock Wound Undermining Depth 7: 2 - Wound 8 Status Wound 8 Care Status: Active - Wound Assessment 8 Wound Location Body 8: Present: Left Wound location Body Site 8: Ischium Wound Type 8: Present: Pressure Ulcer Wound Staging 8: Stage IV Wound Bed Appearance 8: Present: Beefy Red, Yellow Percent of Wound Bed Granulated/Red 8: 60 Percent of Wound Bed Fibrin/Yellow 8: 40 Wound Surrounding Tissue Appearance (Periwound) 8: Present: Erythematous Surrounding Tissue Temperature 8: Warm Wound Drainage Amount 8: Large Wound Drainage Description 8: Present: Serosanguineous Wound Drainage Odor 8: No Odor Wound Length 8: 17.5 Wound Width 8: 13.5 Wound Depth 8: 2.2 Wound Square Centimeters 8: 236.25 Current Wound Volume 8: 519.8 Wound Undermining Position 8: 11-2 o'clock Wound Undermining Depth 8: 3.2 - Wound 9 Status Wound 9 Care Status: Active - Wound Assessment 9 Wound Location Body 9: Present: Right Wound location Body Site 9: Ischium Wound Type 9: Present: Pressure Ulcer Wound Staging 9: Stage IV Wound Bed Appearance 9: Present: Beefy Red, Yellow Percent of Wound Bed Granulated/Red 9: 60 Percent of Wound Bed Fibrin/Yellow 9: 40 Wound Surrounding Tissue Appearance (Periwound) 9: Present: Erythematous Surrounding Tissue Temperature 9: Warm Wound Drainage Amount 9: Large Wound Drainage Description 9: Present: Serosanguineous Wound Drainage Odor 9: No Odor Wound Length 9: 25.5 Wound Width 9: 10 Wound Depth 9: 2.2 Wound Square Centimeters 9: 255.00 Current Wound Volume 9: 561.0 Wound Undermining Position 9: 11-3 o'clock Wound Undermining Depth 9: 4.3 - Wound 10 Status Wound 10 Care Status: Epithelialized - Wound Assessment 10 Wound Location Body 10: Present: Left, Posterior, Lateral Wound location Body Site 10: Ankle Wound Staging 10: Stage IV - Wound 11 Status Wound 11 Care Status: Active Wound 11 Status Date: 05/22/17 - Wound Assessment 11 Wound Location Body 11: Present: Left Wound location Body Site 11: Toe 5th Digit Wound Type 11: Present: Trauma, Full Thickness Wound Bed Appearance 11: Present: Beefy Red Percent of Wound Bed Granulated/Red 11: 80 Percent of Wound Bed Fibrin/Yellow 11: 20 Wound Surrounding Tissue Appearance (Periwound) 11: Present: Intact Surrounding Tissue Temperature 11: Warm Wound Drainage Amount 11: Moderate Wound Drainage Description 11: Present: Serosanguineous Wound Drainage Odor 11: No Odor Wound Length 11: 0.5 Wound Width 11: 1.5 Wound Depth 11: 0.4 Wound Square Centimeters 11: 0.75 Current Wound Volume 11: 0.3 - Wound 12 Status Wound 12 Care Status: Epithelialized - Wound Assessment 12 Wound Location Body 12: Present: Left, Posterior Wound location Body Site 12: Heel Wound Type 12: Present: Pressure Ulcer Wound Staging 12: Stage III Wound Bed Appearance 12: Present: Epithelialized - Wound 13 Status Wound 13 Care Status: Active Wound 13 Status Date: 05/22/17 - Wound Assessment 13 Wound Location Body 13: Present: Right, Posterior Wound location Body Site 13: Heel Wound Type 13: Present: Pressure Ulcer Wound Staging 13: Stage III Wound Bed Appearance 13: Present: Dusky Red Percent of Wound Bed Granulated/Red 13: 50 Percent of Wound Bed Fibrin/Yellow 13: 50 Wound Surrounding Tissue Appearance (Periwound) 13: Present: Intact Surrounding Tissue Temperature 13: Warm Wound Drainage Amount 13: Moderate Wound Drainage Description 13: Present: Serosanguineous Wound Drainage Odor 13: No Odor Wound Length 13: 5.5 Wound Width 13: 2.5 Wound Depth 13: 0.2 Wound Square Centimeters 13: 13.75 Current Wound Volume 13: 2.8 - Wound 14 Status Wound 14 Care Status: Active - Wound Assessment 14 Wound Location Body 14: Present: Right, Lateral Wound location Body Site 14: Ankle Wound Type 14: Present: Pressure Ulcer Wound Staging 14: Stage IV Wound Bed Appearance 14: Present: Dusky Red, Yellow Percent of Wound Bed Granulated/Red 14: 50 Percent of Wound Bed Fibrin/Yellow 14: 50 Wound Surrounding Tissue Appearance (Periwound) 14: Present: Intact Surrounding Tissue Temperature 14: Warm Wound Drainage Amount 14: Large Wound Drainage Description 14: Present: Serosanguineous Wound Drainage Odor 14: No Odor Wound Length 14: 2.4 Wound Width 14: 1.5 Wound Depth 14: 0.5 Wound Square Centimeters 14: 3.60 Current Wound Volume 14: 1.8 Wound Undermining Position 14: 7-11 oclock Wound Undermining Depth 14: 0.7 - Wound 16 Status Wound 16 Care Status: Active - Wound Assessment 16 Wound Location Body 16: Present: Left Wound location Body Site 16: Elbow Wound Type 16: Present: Pressure Ulcer Wound Staging 16: Stage II Wound Bed Appearance 16: Present: Yellow Percent of Wound Bed Fibrin/Yellow 16: 100 Wound Surrounding Tissue Appearance (Periwound) 16: Present: Intact Surrounding Tissue Temperature 16: Warm Wound Drainage Amount 16: Moderate Wound Drainage Description 16: Present: Serous Wound Drainage Odor 16: No Odor Wound Length 16: 1.5 Wound Width 16: 1.5 Wound Depth 16: 0.8 Wound Square Centimeters 16: 2.25 Current Wound Volume 16: 1.8 - Wound 19 Status Wound 19 Care Status: Epithelialized - Wound Assessment 19 Wound Location Body 19: Present: Right, Lateral, Distal Wound location Body Site 19: Ankle Wound Type 19: Present: Pressure Ulcer Wound Staging 19: Stage IV Wound Bed Appearance 19: Present: Epithelialized - Wound 20 Status Wound 20 Care Status: Active - Wound Assessment 20 Wound Location Body 20: Present: Left, Dorsal Wound location Body Site 20: Foot Wound Type 20: Present: Pressure Ulcer Wound Staging 20: Stage III Wound Bed Appearance 20: Present: Beefy Red, Dusky Red Percent of Wound Bed Granulated/Red 20: 50 Percent of Wound Bed Fibrin/Yellow 20: 50 Wound Surrounding Tissue Appearance (Periwound) 20: Present: Intact Surrounding Tissue Temperature 20: Warm Wound Drainage Amount 20: Moderate Wound Drainage Odor 20: No Odor Wound Length 20: 1 Wound Width 20: 2 Wound Depth 20: 0.3 Wound Square Centimeters 20: 2.00 Current Wound Volume 20: 0.6 - Transfer Medications Prescriptions: Ferrous Sulfate 325 mg PO DAILY@0800 #30 tablet Folic Acid 1 mg PO DAILY #30 tablet Pvgkudhvaldk-Piuj-Qpbfjxpu,Iso [Zosyn 4.5 gm/100 ml Galaxy Bag] 4.5 gm IV Q8H 42 Days froz.piggy Vancomycin HCl in Dextrose 5 % [Vancomycin-D5w 1.25 Gram/250Ml] 1.25 gm IV DAILY 37 Days pkg Home Medications: Baclofen [Lioresal] 20 mg PO QID 03/01/15 [History] Ibuprofen [Motrin] 400 mg PO Q6HR PRN 03/01/15 [History] Levothyroxine [Synthroid] 25 mcg PO 0630 03/01/15 [History] OxyCODONE/APAP 10/325 [Percocet 10/325] 1 each PO Q6HR 03/01/15 [History] Oxybutynin [Ditropan] 5 mg PO TID 03/01/15 [History] traMADol [Ultram] 100 mg PO TID 03/01/15 [History] Tizanidine HCl [Zanaflex] 4 mg PO TID 11/30/15 [History] Furosemide [Lasix] 40 mg PO DAILY 05/16/16 [History] Collagenase Oint [Santyl] 1 appl TP DAILY 05/22/17 [History] Nystatin [Nystatin Suspension] 100,000 units PO QID 05/22/17 [History] Oxybutynin [Ditropan] 5 mg PO TID 05/22/17 [History] Tizanidine HCl [Zanaflex] 2 mg PO TID 05/22/17 [History] Trazodone HCl 100 mg PO HS 05/22/17 [History] Ferrous Sulfate 325 mg PO DAILY@0800 #30 tablet 05/28/17 [Rx] Folic Acid 1 mg PO DAILY #30 tablet 05/28/17 [Rx] Xwtiujbrbwks-Xyhl-Pgxlqxif,Iso [Zosyn 4.5 gm/100 ml Galaxy Bag] 4.5 gm IV Q8H 42 Days froz.piggy 05/28/17 [Rx] Vancomycin HCl in Dextrose 5 % [Vancomycin-D5w 1.25 Gram/250Ml] 1.25 gm IV DAILY 37 Days pkg 05/28/17 [Rx] Allergies/Adverse Reactions: 3 Allergy/AdvReac Type Severity Reaction Status Date / Time lorazepam [From Ativan] Allergy Nightmare Verified 03/01/15 11:54 Certification: Further, I certify that my clinical findings support that this patient is homebound (i.e. absences from home require considerable and taxing effort and are for medical reasons or amish services or infrequently or short duration when for other reasons) because: Homebound Reason: Patient requires assistance of a person or device to safely leave home Attestation: My signature below is to certify that this patient is under my care and that I, or nurse practitioner, or a physician's child life assistant working with me, has a face-to -face encounter with this patient.
[2017-05-28] MEDS ORDERED: Aminoglycoside Consult 1 EACH MC ONE (17:44)
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
== END 2017-05-28 17:45 | disposition home or self-care (01) | DRG 853 ==
LOC: 3ANU 12:03 → SUATTDRO 12:03
PROVIDERS: ADMIT Surgery; ATTEND Internal Medicine

== ENCOUNTER 2017-08-05 15:14 | Inpatient (IN) ==
[2017-08-05] MEDS ORDERED: 0.9 % Sodium Chloride 1,000 ML IVC ONE (15:19)
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
[2017-08-05 16:02] LABS: Basophils % 0.2 %; Eosinophils % 0.3 %; Hematocrit 34.5 % (37.5-50.1); Hemoglobin 10.6 g/dL (12.9-16.9); Lymphocytes # 1.3 K/mcL (0.6-4.6); Lymphocytes % 13.9 %; Mean Corpuscular HGB Conc 30.7 g/dL (31.6-35.5); Mean Corpuscular Hemoglobin 28.3 pg (28.0-33.3); Mean Platelet Volume 10.5 fL (9.4-12.4); Monocytes # 0.5 K/mcL (0.0-1.3); Monocytes % 5.6 %; Neutrophils # 7.3 K/mcL (1.6-8.9); Platelet Count 109 K/mcL (140-400); Red Blood Count 3.75 M/mcL (4.19-5.50); Red Cell Distribution Width 19.2 % (11.5-14.5)
[2017-08-05 16:07] LABS: INR 1.1; Prothrombin Time 12.4 Seconds (9.4-12.1)
[2017-08-05 16:10] LABS: Activated Partial Thrombo Time 32.4 Seconds (26.0-36.0)
[2017-08-05 16:30] LABS: Ethanol < 10 mg/dL (0-10)
[2017-08-05 16:43] LABS: Bilirubin,Urine Negative (Negative); Blood,Urine Small (Negative); Clarity,Urine Cloudy (Clear); Color,Urine Yellow (Yellow); Glucose,Urine (UA) Normal (Normal); Ketones,Urine Negative (Negative); Leukocyte Esterase,Urine Moderate (Negative); Nitrite,Urine Negative (Negative); PH,Urine 7.5 pH Units (5.0-8.0); Protein,Urine Negative (Neg-Trace); Specific Gravity,Urine 1.014 (1.010-1.025); Urobilinogen,Urine Normal (Normal)
[2017-08-05 16:54] LABS: Amphetamine Screen,Urine Negative ng/mL (Cutoff=1000); Barbiturate Screen,Urine Negative ng/mL (Cutoff=200); Benzodiazepines Screen,Urine Negative ng/mL (Cutoff=200); Cannabinoid Screen,Urine Negative ng/mL (Cutoff = 50); Cocaine Screen,Urine Negative ng/mL (Cutoff= 300); Opiate Screen,Urine Negative ng/mL (Cutoff=300); Phencyclidine Screen,Urine Negative ng/mL (Cutoff=25)
[2017-08-05 16:55] LABS: Bacteria,Urine Moderate per hpf (None-Few); RBC,Urine 0-3 per hpf (0-3); Squamous Epithelial Cell,Urine Moderate per lpf (None-Few)
[2017-08-05 17:06] LABS: Alanine Aminotransferase 97 Units/L (7-52); Albumin 1.6 g/dL (3.5-5.7); Albumin/Globulin Ratio 0.4 (1.1-2.2); Alkaline Phosphatase 531 Units/L (34-104); Aspartate Amino Transferase 86 Units/L (13-39); BUN/Creatinine Ratio 18 (6-26); Bilirubin,Indirect 0.4 mg/dL (0.0-1.2); Bilirubin,Total 0.4 mg/dL (0.3-1.0); Blood Urea Nitrogen 13 mg/dL (6-20); Calcium 7.2 mg/dL (8.6-10.3); Carbon Dioxide 28 mEq/L (23-29); Chloride 97 mEq/L (98-107); Globulin 3.8 g/dL (2.4-3.5); Glucose 99 mg/dL (70-105); Osmolality,Calculated 274 (280-300); Potassium 4.2 mEq/L (3.5-5.1); Sodium 132 mEq/L (136-145); Total Protein 5.4 g/dL (6.4-8.9); eGFR For African Americans > 60 (> 60); eGFR For Non-African Americans > 60 (> 60)
[2017-08-05] MEDS ORDERED: Aspirin 81 MG TAB.CHEW PO STA (17:16)
[2017-08-05] MEDS ORDERED: *HR* OxyCODONE/APAP 10/325 TABLET PO PRN (19:54)
[2017-08-05] MEDS ORDERED: traMADol 50 MG TABLET PO PRN (19:54)
[2017-08-05] MEDS ORDERED: Naloxone 0.4 MG/ML INJ IVP PRN (19:57)
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
[2017-08-05] MEDS ORDERED: Lactulose Oral Soln 20 GM/30 ML UDC PO ONE (20:19)
[2017-08-05] MEDS ORDERED: cefTRIAXone 1,000 MG in Water for inj. (sterile) 10 ML IVP SCH (21:00)
[2017-08-05] MEDS ORDERED: Simethicone 80 MG TAB.CHEW PO PRN (22:59)
[2017-08-05] MEDS: Baclofen 10 MG TABLET PO SCH (23:24)
[2017-08-05] MEDS: traZODone 50 MG TABLET PO SCH (23:24)
[2017-08-05] MEDS: Furosemide 20 MG TABLET PO SCH (23:24)
[2017-08-05] MEDS: tiZANidine 4 MG TABLET PO SCH (23:25)
[2017-08-06 04:58] LABS: Basophils % 0.3 %; Eosinophils # 0.1 K/mcL (0.0-0.6); Eosinophils % 0.8 %; Hematocrit 31.5 % (37.5-50.1); Hemoglobin 9.7 g/dL (12.9-16.9); Immature Granulocytes % 0.8 % (0-4); Lymphocytes # 1.6 K/mcL (0.6-4.6); Lymphocytes % 18.4 %; Mean Corpuscular HGB Conc 30.8 g/dL (31.6-35.5); Mean Platelet Volume 10.3 fL (9.4-12.4); Monocytes # 0.6 K/mcL (0.0-1.3); Monocytes % 6.3 %; Neutrophils # 6.4 K/mcL (1.6-8.9); Platelet Count 115 K/mcL (140-400); Red Blood Count 3.46 M/mcL (4.19-5.50); Segmented Neutrophils % 73.4 %
[2017-08-06 05:38] LABS: Alanine Aminotransferase 98 Units/L (7-52); Albumin 1.5 g/dL (3.5-5.7); Albumin/Globulin Ratio 0.4 (1.1-2.2); Alkaline Phosphatase 572 Units/L (34-104); Aspartate Amino Transferase 108 Units/L (13-39); BUN/Creatinine Ratio 17 (6-26); Bilirubin,Total 0.3 mg/dL (0.3-1.0); Blood Urea Nitrogen 11 mg/dL (6-20); Calcium 7.2 mg/dL (8.6-10.3); Carbon Dioxide 27 mEq/L (23-29); Chloride 100 mEq/L (98-107); Globulin 3.4 g/dL (2.4-3.5); Glucose 83 mg/dL (70-105); Osmolality,Calculated 281 (280-300); Potassium 3.6 mEq/L (3.5-5.1); Sodium 136 mEq/L (136-145); Total Protein 4.9 g/dL (6.4-8.9); eGFR For African Americans > 60 (> 60); eGFR For Non-African Americans > 60 (> 60)
[2017-08-06] MEDS: Levothyroxine 25 MCG TABLET PO SCH (05:39)
[2017-08-06] MEDS: Furosemide 20 MG TABLET PO SCH ×2 (10:16→16:18)
[2017-08-06] MEDS: tiZANidine 4 MG TABLET PO SCH ×3 (10:22→22:04)
[2017-08-06] MEDS: Baclofen 10 MG TABLET PO SCH ×4 (10:22→22:04)
[2017-08-06] MEDS ORDERED: 0.9 % Sodium Chloride 1,000 ML IVC SCH (11:00)
--- NOTE | 2017-08-06 13:11 | Event Note ---
Date of Encounter: 08/06/17 Time of Encounter: 13:09 Pt is known to wound care. Wound care instructions/orders from 06/2017 printed and placed on chart. Please continue to follow wound care instructions as previously noted. A consult was also placed to the wound care team who will evaluate the patient later today. There is no acute surgical indication at this time. Surgery will sign off.
--- NOTE | 2017-08-06 13:51 | Internal Med Progress Note ---
Date of Encounter: 08/06/17 Time of Encounter: 10:45 - Assessment and plan (1) Sacral osteomyelitis Current Visit: Yes Status: Acute Assessment and plan: Reviewed his old records concerned for osteomyelitis Checked stat ESR and CRP significantly elevated In the past he did grew Pseudomonas Will start him on broad spec abx coverage Zosyn + Vanco Started him on IV hydration Lactic acid - 1.2 Consulted ID for further eval Surgery on board wound care consulted Over all very poor prognosis with all the above comorbidities.. Pt requested for full code. Will talk to pt's mother also about further care of plan. (2) Hepatic encephalopathy Current Visit: Yes Status: Acute Assessment and plan: Unclear etiology U/S Abd- no signs of cirrhosis Does have cholelithiasis Cont Lactulose trend on Ammonia (3) UTI (urinary tract infection) due to urinary indwelling catheter Current Visit: No Status: Acute Assessment and plan: Cont empirical abx could be colonized will f/ u on urine cx Qualifiers: Indwelling urinary catheter type: indwelling urethral catheter Qualified Code(s): T83.511A - Infection and inflammatory reaction due to indwelling urethral catheter, initial encounter; N39.0 - Urinary tract infection, site not specified; N39.0 - Urinary tract infection, site not specified (4) Decubitus ulcer of sacral region, stage 4 Current Visit: Yes Status: Acute (5) Transaminitis Current Visit: Yes Status: Acute Assessment and plan: slightly elevated cont close monitoring U/S did not show any cholecystitis (6) Altered mental status Current Visit: Yes Status: Acute Assessment and plan: due to hepatic encephalopathy Qualifiers: Altered mental status type: unspecified Qualified Code(s): R41.82 - Altered mental status, unspecified (7) Decubitus ulcers Current Visit: Yes Status: Acute Qualifiers: Pressure ulcer location: unspecified location Pressure ulcer stage: unspecified pressure ulcer stage Qualified Code(s): L89.90 - Pressure ulcer of unspecified site, unspecified stage (8) Cholelithiases Current Visit: Yes Status: Acute Assessment and plan: with out cholecystitis cont close monitoring surgery on board Qualifiers: Qualified Code(s): K80.20 - Calculus of gallbladder without cholecystitis without obstruction - Subjective Interval history: Mr. Ram is a 47 year old male with a PMH of multiple, decubitus ulcers, quadriplegia, and hypothyroidism who also has chronic ostomyelitis stage 4 sacral decubitus ulcer, septic arthritis was treated with 6 weeks IV Abx Zosyn + Vancomycin starting from 05/28/17 now he presented to [facility] ER with altered mental status for the last couple of days. 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 He reports that he was recently treated at [facility] for a UTI. He denies any fevers, chills, night sweats, N/V. He has had loss of bowel function which is abnormal for him as he typically requires rectal stimulation. He reports that he was seen at an [facility] yesterday and was given a transfusion and IV fluids due to anemia. He follows Dr. De La Fuente for management of his multiple decubitus ulcers. He reports have many sacralcoccyxgeal ulcers which require extensive daily maintenance. He lives at home with his Mom and Dad and has home health care. Workup in the ED revealed an ammonia 92, transaminitis and an elevated troponin. pt was admitted in the hospital and started him on empirical abx Rocephin. When I examined him this morning he is alert, awake and O x 3, looks sleepy and sedative. Unable to give complete history about his wounds. - Constitutional Vitals: Temp Pulse Resp BP Pulse Ox 97.2 F L 85 18 94/52 94 08/06/17 07:24 08/06/17 07:24 08/06/17 07:24 08/06/17 07:24 08/06/17 07:24 General appearance: Present: cooperative, A&O X 3, no acute distress, answers questions appropriately - Head Head exam: Present: atraumatic, normal inspection - Neck Neck exam general surgery: Present: supple - Respiratory Respiratory exam: Present: decreased breath sounds, wheezes (mild). Absent: rales, respiratory distress, rhonchi - Cardiovascular Cardiovascular exam: Present: RRR, +S1, +S2. Absent: tachycardia - Extremities Exam Extremities exam: Present: pedal edema. Absent: calf tenderness, tenderness Additional comments: pressure ulcers - Back Exam Additional comments: stage 4 sacral ulcer with purulent drainage - Neurological Exam Neurological exam: Present: alert, motor sensory deficit (chronic quadriplegia) , oriented X3 - Psychiatric Psychiatric exam: Present: depressed - Skin Additional comments: multiple pressure ulcers Internal Medicine: Result - Labs CBC & Chem 7: 08/06/17 04:07 08/06/17 04:07 Labs: Short CBC 08/06/17 Range/Units 04:07 WBC 8.7 (4.3-11.1) K/mcL Hgb 9.7 L (12.9-16.9) g/dL Hct 31.5 L (37.5-50.1) % Plt Count 115 L (140-400) K/mcL Neutrophils # 6.4 (1.6-8.9) K/mcL BMP 08/06/17 04:07 Sodium 136 Potassium 3.6 Chloride 100 Carbon Dioxide 27 BUN 11 Creatinine 0.64 L Glucose 83 Calcium 7.2 L Cardiac Enzymes 08/05/17 08/06/17 Range/Units 21:48 04:07 Troponin I 0.03 0.03 (< 0.04) ng/mL Liver Function 08/06/17 Range/Units 04:07 Total Bilirubin 0.3 (0.3-1.0) mg/dL AST 108 H (13-39) Units/L ALT 98 H (7-52) Units/L Alkaline Phosphatase 572 H (34-104) Units/L Albumin 1.5 L (3.5-5.7) g/dL - ABG Interpretation ABG results: PT/INR, D-dimer PT 12.4 Seconds (9.4-12.1) H 08/05/17 15:54 - Impressions Impressions Abdomen Ultrasound 08/06/17 08:30 IMPRESSION: Limited study secondary to overlying bowel gas and body habitus. Increased echogenicity of the liver with no definite focal lesion noted given limitations of the study. Cholelithiasis without sonographic evidence of cholecystitis. D/ / 08/06/2017 10:36:06 Adrian Johns MD / bcarter Interpreting Provider: Adrian Johns MD - VTE Documentation of Mechanical Device: Intermittent pneumatic compression device Consult Discharge Plan - Plan Referrals: Keyona Joseph, INTERNAL RECRUITER [Primary Care Provider] -
--- NOTE | 2017-08-06 16:24 | Electrocardiograph Report ---
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
[2017-08-06] MEDS: Vancomycin 1,500 MG in D5% in Water 250 ML IVPB SCH (17:23)
[2017-08-06] MEDS: Piperacillin/Tazobactam 3.375 GM/200 ML BAG IVPB SCH (18:00)
[2017-08-06] MEDS: traZODone 50 MG TABLET PO SCH (22:04)
[2017-08-07] MEDS: Piperacillin/Tazobactam 3.375 GM/200 ML BAG IVPB SCH ×4 (01:08→23:46)
[2017-08-07] MEDS: Vancomycin 1,500 MG in D5% in Water 250 ML IVPB SCH ×2 (03:58→17:09)
[2017-08-07 05:33] LABS: Basophils % 0.3 %; Eosinophils # 0.1 K/mcL (0.0-0.6); Eosinophils % 1.3 %; Hematocrit 30.4 % (37.5-50.1); Hemoglobin 9.5 g/dL (12.9-16.9); Immature Granulocytes % 0.9 % (0-4); Lymphocytes # 1.2 K/mcL (0.6-4.6); Lymphocytes % 15.9 %; Mean Corpuscular HGB Conc 31.3 g/dL (31.6-35.5); Mean Corpuscular Hemoglobin 28.5 pg (28.0-33.3); Mean Corpuscular Volume 91.3 fL (83.0-100.0); Mean Platelet Volume 10.2 fL (9.4-12.4); Monocytes # 0.5 K/mcL (0.0-1.3); Monocytes % 6.6 %; Neutrophils # 5.7 K/mcL (1.6-8.9); Platelet Count 140 K/mcL (140-400); Red Blood Count 3.33 M/mcL (4.19-5.50); Red Cell Distribution Width 19.2 % (11.5-14.5)
[2017-08-07 06:01] LABS: Alanine Aminotransferase 83 Units/L (7-52); Albumin 1.5 g/dL (3.5-5.7); Albumin/Globulin Ratio 0.4 (1.1-2.2); Alkaline Phosphatase 516 Units/L (34-104); Aspartate Amino Transferase 56 Units/L (13-39); BUN/Creatinine Ratio 13 (6-26); Bilirubin,Total 0.4 mg/dL (0.3-1.0); Blood Urea Nitrogen 8 mg/dL (6-20); C-Reactive Protein > 300 mg/L (Less than 10); Carbon Dioxide 29 mEq/L (23-29); Chloride 101 mEq/L (98-107); Globulin 3.5 g/dL (2.4-3.5); Glucose 109 mg/dL (70-105); Magnesium 2.3 mg/dL (1.6-2.6); Osmolality,Calculated 279 (280-300); Potassium 3.2 mEq/L (3.5-5.1); Sodium 135 mEq/L (136-145); eGFR For African Americans > 60 (> 60); eGFR For Non-African Americans > 60 (> 60)
[2017-08-07] MEDS: Levothyroxine 25 MCG TABLET PO SCH (06:05)
[2017-08-07] MEDS: Furosemide 20 MG TABLET PO SCH (07:53)
[2017-08-07] MEDS: tiZANidine 4 MG TABLET PO SCH ×3 (07:55→20:32)
[2017-08-07] MEDS: Baclofen 10 MG TABLET PO SCH ×4 (07:56→20:32)
[2017-08-07] MEDS ORDERED: *HR* Morphine 2 MG/ML SYRINGE IVP PRN (12:31)
--- NOTE | 2017-08-07 12:34 | Internal Med Progress Note ---
Date of Encounter: 08/07/17 Time of Encounter: 12:32 - Assessment and plan (1) Sacral osteomyelitis Current Visit: Yes Status: Acute Assessment and plan: Reviewed his old records concerned for osteomyelitis ESR and CRP critically elevated His current wound cx growing MRSA so far In the past he did grew Pseudomonas Will cont him on broad spec abx coverage Zosyn + Vanco Lactic acid - 1.2 Consulted ID for further eval / abx management Surgery on board wound care consulted Over all very poor prognosis with all the above comorbidities.. Pt requested for full code. Talked to pt's mother and explained to her about current care (2) Hepatic encephalopathy Current Visit: Yes Status: Acute Assessment and plan: Unclear etiology U/S Abd- no signs of cirrhosis Does have cholelithiasis Cont Lactulose trend on Ammonia (3) UTI (urinary tract infection) due to urinary indwelling catheter Current Visit: No Status: Acute Assessment and plan: Cont empirical abx could be colonized will f/ u on urine cx Qualifiers: Indwelling urinary catheter type: indwelling urethral catheter Qualified Code(s): T83.511A - Infection and inflammatory reaction due to indwelling urethral catheter, initial encounter; N39.0 - Urinary tract infection, site not specified; N39.0 - Urinary tract infection, site not specified (4) Decubitus ulcer of sacral region, stage 4 Current Visit: Yes Status: Acute (5) Transaminitis Current Visit: Yes Status: Acute Assessment and plan: slightly elevated cont close monitoring U/S did not show any cholecystitis (6) Altered mental status Current Visit: Yes Status: Acute Assessment and plan: due to hepatic encephalopathy Improving Qualifiers: Altered mental status type: unspecified Qualified Code(s): R41.82 - Altered mental status, unspecified (7) Decubitus ulcers Current Visit: Yes Status: Acute Qualifiers: Pressure ulcer location: unspecified location Pressure ulcer stage: unspecified pressure ulcer stage Qualified Code(s): L89.90 - Pressure ulcer of unspecified site, unspecified stage (8) Cholelithiases Current Visit: Yes Status: Acute Assessment and plan: with out cholecystitis cont close monitoring surgery on board Qualifiers: Qualified Code(s): K80.20 - Calculus of gallbladder without cholecystitis without obstruction - Subjective Interval history: Mr. Ram is a 47 year old male with a PMH of multiple, decubitus ulcers, quadriplegia, and hypothyroidism who also has chronic ostomyelitis stage 4 sacral decubitus ulcer, septic arthritis was treated with 6 weeks IV Abx Zosyn + Vancomycin starting from 05/28/17 now he presented to [facility] ER with altered mental status for the last couple of days. 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 He reports that he was recently treated at [facility] for a UTI. He denies any fevers, chills, night sweats, N/V. He has had loss of bowel function which is abnormal for him as he typically requires rectal stimulation. He reports that he was seen at an [facility] yesterday and was given a transfusion and IV fluids due to anemia. He follows Dr. De La Fuente for management of his multiple decubitus ulcers. He reports have many sacralcoccyxgeal ulcers which require extensive daily maintenance. He lives at home with his Mom and Dad and has home health care. Workup in the ED revealed an ammonia 92, transaminitis and an elevated troponin. pt was admitted in the hospital and started him on empirical abx . Today he is more alert, awake and O x 3. Requesting for slava pain medication. - Constitutional Vitals: Temp Pulse Resp BP Pulse Ox 97.3 F L 83 16 91/54 97 08/07/17 07:54 08/07/17 07:54 08/07/17 07:54 08/07/17 07:54 08/07/17 07:54 General appearance: Present: cooperative, A&O X 3, no acute distress, answers questions appropriately - Head Head exam: Present: atraumatic, normal inspection - Neck Neck exam general surgery: Present: supple - Respiratory Respiratory exam: Present: decreased breath sounds, wheezes (mild). Absent: rales, respiratory distress, rhonchi - Cardiovascular Cardiovascular exam: Present: RRR, +S1, +S2. Absent: tachycardia - GI/Abdominal GI/Abdominal exam: Present: normal bowel sounds, soft. Absent: rebound, rigid, tenderness - Extremities Exam Extremities exam: Present: pedal edema, tenderness. Absent: calf tenderness Additional comments: stage 4 pressure ulcers over both heels - Back Exam Additional comments: stage 4 sacral ulcer with purulent drainage - Neurological Exam Neurological exam: Present: alert, oriented X3 - Psychiatric Psychiatric exam: Present: depressed Internal Medicine: Result - Labs CBC & Chem 7: 08/07/17 05:03 08/07/17 05:03 Labs: Short CBC 08/07/17 Range/Units 05:03 WBC 7.6 (4.3-11.1) K/mcL Hgb 9.5 L (12.9-16.9) g/dL Hct 30.4 L (37.5-50.1) % Plt Count 140 (140-400) K/mcL Neutrophils # 5.7 (1.6-8.9) K/mcL BMP 08/07/17 05:03 Sodium 135 L Potassium 3.2 L Chloride 101 Carbon Dioxide 29 BUN 8 Creatinine 0.64 L Glucose 109 H Calcium 7.0 L Liver Function 08/07/17 Range/Units 05:03 Total Bilirubin 0.4 (0.3-1.0) mg/dL AST 56 H (13-39) Units/L ALT 83 H (7-52) Units/L Alkaline Phosphatase 516 H (34-104) Units/L Albumin 1.5 L (3.5-5.7) g/dL - ABG Interpretation ABG results: PT/INR, D-dimer PT 12.4 Seconds (9.4-12.1) H 08/05/17 15:54 - Impressions Impressions Abdomen Ultrasound 08/06/17 08:30 IMPRESSION: Limited study secondary to overlying bowel gas and body habitus. Increased echogenicity of the liver with no definite focal lesion noted given limitations of the study. Cholelithiasis without sonographic evidence of cholecystitis. D/ / 08/06/2017 10:36:06 Adrian Johns MD / [email or web address] Interpreting Provider: Adrian Johns MD - VTE Documentation of Mechanical Device: Intermittent pneumatic compression device Consult Discharge Plan - Plan Referrals: Keyona Joseph, CIVIL PROCESS SERVER [Primary Care Provider] -
[2017-08-07] MEDS: *HR* OxyCODONE Immed Rel 5 MG TABLET PO PRN ×2 (12:58→18:43)
[2017-08-07] MEDS: Lactulose Oral Soln 20 GM/30 ML UDC PO SCH ×3 (13:02→20:32)
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
[2017-08-07] MEDS: traZODone 50 MG TABLET PO SCH (20:32)
[2017-08-08] MEDS ORDERED: Aminoglycoside Consult 1 EACH MC ONE (00:14)
[2017-08-08 03:17] LABS: Basophils % 0.3 %; Eosinophils # 0.1 K/mcL (0.0-0.6); Eosinophils % 1.4 %; Hematocrit 28.9 % (37.5-50.1); Hemoglobin 8.9 g/dL (12.9-16.9); Immature Granulocytes % 1.2 % (0-4); Lymphocytes # 1.2 K/mcL (0.6-4.6); Lymphocytes % 16.3 %; Mean Corpuscular HGB Conc 30.8 g/dL (31.6-35.5); Mean Corpuscular Hemoglobin 28.6 pg (28.0-33.3); Mean Corpuscular Volume 92.9 fL (83.0-100.0); Mean Platelet Volume 10.2 fL (9.4-12.4); Monocytes # 0.4 K/mcL (0.0-1.3); Monocytes % 5.7 %; Neutrophils # 5.4 K/mcL (1.6-8.9); Platelet Count 137 K/mcL (140-400); Red Blood Count 3.11 M/mcL (4.19-5.50); Red Cell Distribution Width 19.3 % (11.5-14.5); Segmented Neutrophils % 75.1 %
[2017-08-08 04:44] LABS: Alanine Aminotransferase 74 Units/L (7-52); Albumin < 1.5 g/dL (3.5-5.7); Alkaline Phosphatase 409 Units/L (34-104); Aspartate Amino Transferase 44 Units/L (13-39); BUN/Creatinine Ratio 11 (6-26); Bilirubin,Total 0.4 mg/dL (0.3-1.0); Blood Urea Nitrogen 7 mg/dL (6-20); Calcium 6.8 mg/dL (8.6-10.3); Carbon Dioxide 26 mEq/L (23-29); Chloride 104 mEq/L (98-107); Glucose 81 mg/dL (70-105); Magnesium 2.2 mg/dL (1.6-2.6); Osmolality,Calculated 279 (280-300); Potassium 3.6 mEq/L (3.5-5.1); Sodium 136 mEq/L (136-145); Total Protein 4.6 g/dL (6.4-8.9); eGFR For African Americans > 60 (> 60); eGFR For Non-African Americans > 60 (> 60)
[2017-08-08] MEDS: Levothyroxine 25 MCG TABLET PO SCH (05:37)
[2017-08-08] MEDS: Piperacillin/Tazobactam 3.375 GM/200 ML BAG IVPB SCH ×2 (09:48→17:14)
[2017-08-08] MEDS: Baclofen 10 MG TABLET PO SCH ×4 (09:51→21:47)
[2017-08-08] MEDS: tiZANidine 4 MG TABLET PO SCH ×3 (09:51→21:47)
[2017-08-08] MEDS: Lactulose Oral Soln 20 GM/30 ML UDC PO SCH ×3 (09:51→21:47)
[2017-08-08] MEDS ORDERED: 0.9 % Sodium Chloride 500 ML ONE (16:07)
[2017-08-08] MEDS ORDERED: 0.9 % Sodium Chloride 500 ML IVC SCH (16:15)
[2017-08-08] MEDS ORDERED: 0.9 % Sodium Chloride 1,000 ML IVC SCH (16:15)
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
[2017-08-08 20:31] VITALS: BP 74/54
[2017-08-08] MEDS: traZODone 50 MG TABLET PO SCH (21:47)
[2017-08-09] MEDS ORDERED: Vancomycin 1,250 MG in D5% in Water 250 ML IVPB SCH (03:00)
== END 2017-08-08 16:56 | disposition short-term general hospital (02) | DRG 539 ==
LOC: EMEROO 15:14 → 3ANU 17:39
PROVIDERS: ADMIT Internal Medicine; ATTEND Internal Medicine